=== PATIENT | female | born 1965 | race Caucasian/White ===

== ENCOUNTER → 2019-05-23 12:28 | Outpatient (CLI) | payer OTHER, SELFPAY ==
--- NOTE | ~2019-05-23 | MM_ITS ---
EXAMINATION: MM screening [facility] BI w bob HISTORY: Screening mammogram TECHNIQUE: Craniocaudal and mediolateral oblique 3-D tomosynthesis images were obtained and synthetic 2-D images were generated. CAD analysis was submitted and interpreted. COMPARISON: 04/29/2018, 02/24/2017, 02/18/2016 BREAST PARENCHYMAL COMPOSITION: There are scattered areas of fibroglandular density. FINDINGS: There is no evidence of suspicious mass, calcification, or architectural distortion to sugg est malignancy in either breast. There has been no suspicious interval change. IMPRESSION: 1. No mammographic evidence of malignancy. 2. Recommend routine screening mammography in one year. BI-RADS Category 1: Negative Reviewed, dictated and finalized at location A.
== END ==
PROVIDERS: PCP Family Medicine; Visit Provider Nurse Practitioner Obstetrics & Gynecology
DX: Z12.31 Encounter for screening mammogram for malignant neoplasm of breast (principal)
CPT/HCPCS: 77063; 77067

== ENCOUNTER → 2021-05-19 14:46 | Outpatient (CLI) | payer OTHER, SELFPAY ==
--- NOTE | ~2021-05-19 | MM_ITS ---
EXAMINATION: MM screening [facility] BI w bob HISTORY: Screening TECHNIQUE: Craniocaudal and mediolateral oblique 3-D tomosynthesis images were obtained and synthetic 2-D images were generated. CAD analysis was submitted and interpreted. COMPARISON: Comparison to multiple prior studies sequentially, with oldest reviewed study dated 11/2013. BREAST PARENCHYMAL COMPOSITION: Breast composed of scattered areas of fibroglandular density FINDINGS: There are developing masses centered in the upper outer quadrant of the right breast. The l eft breast is stable without evidence for malignancy. IMPRESSION: 1. Developing right breast masses. 2. Additional mammographic views and possible breast ultrasound are recommended. BI-RADS Category 0: Incomplete: Needs additional imaging evaluation. Reviewed, dictated and finalized at location A. N WIPER IMPRESSION: 1. Developing right breast masses. 2. Additional mammographic views and possible breast ultrasound are recommended . BI-RADS Category 0: Incomplete: Needs additional imaging evaluation.
--- NOTE | ~2021-05-19 | DEXA_ITS ---
Bone Density Report Name: LUIS STRONG Age: 56 Sex: Female Ethnicity: White Date of : 1965 Indication: osteopenia; hysterectomy; rheumatoid arthritis; postmenopausal Referring Provider: Marcelino, Swetha Souza Study: Bone densitometry was performed. Exam Date: May 19, 2021 Accession number: [id number] Bone Density: Region BMD T-score Z-score Classification AP Spine (L1-L4) 0.884 -1.5 -0.4 Osteopenia Femoral Neck (Left) 0.711 -1.2 -0.2 Osteopenia Total Hip (Left) 0.815 -1.0 -0.4 Normal Femoral Neck (Right) 0.648 -1.8 -0.8 Osteopenia Total Hip (Right) 0.824 -1.0 -0.3 Normal Total Hip Mean 0.820 -1.0 -0.4 Normal World Health Organization criteria for BMD impression classify patients as: Normal (T-score at or above -1.0), Osteopenia (T-score between -1.0 and -2.5), or Osteoporosis (T-score at or below -2.5). 10-year Fracture Risk(1): Major Osteoporotic Fracture 8.7% Hip Fracture 0.9% Reported Risk Factors: [place] (), Neck BMD=0.648, BMI=36.9, rheumatoid arthritis (1) FRAX(R) Version 3.08. Fracture probability calculated for an untreated patient. Fracture probability may be lower if the patient has received treatment. Previous Exams: Region Exam Age BMD T-score BMD Change BMD Change Date g/cm2 vs Baseline vs Previous AP Spine(L1-L4) 05/19/2021 56 0.884 -1.5 -0.001 -0.022 11/10/2010 45 0.906 -1.3 0.021 0.060* 10/28/2009 44 0.846 -1.8 -0.039* -0.039* 05/02/2007 42 0.885 -1.5 Total Hip(Left) 05/19/2021 56 0.815 -1.0 -0.044* 0.018 11/10/2010 45 0.797 -1.2 -0.062* -0.003 10/28/2009 44 0.800 -1.2 -0.059* -0.059* 05/02/2007 42 0.859 -0.7 Total Hip(Right) 05/19/2021 56 0.824 -1.0 -0.051* -0.017 11/10/2010 45 0.841 -0.8 -0.034* 0.014 10/28/2009 44 0.827 -0.9 -0.048* -0.048* 05/02/2007 42 0.875 -0.6 *Denotes significance at 95% confidence level, LSC for AP Spine = 0.022 g/cm2, LSC for Total Hip = 0.027 g/cm2 Clinical Information Provided by Patient: Has rheumatoid arthritis Has the following medical conditions: Hysterectomy Patient maximum height was 60 Menopause Age: 33 No regular weight bearing exercise Does not regularly consume dairy products Drinks caffeinated beverages Onset of menses at age 13 Number of children 1
== END ==
PROVIDERS: PCP Family Medicine; Visit Provider Nurse Practitioner Obstetrics & Gynecology
DX: Z12.31 Encounter for screening mammogram for malignant neoplasm of breast (principal); Z78.0 Asymptomatic menopausal state; M85.89 Other specified disorders of bone density and structure, multiple sites
CPT/HCPCS: 77063; 77067; 77080

== ENCOUNTER → 2021-06-03 08:09 | Outpatient (CLI) | payer OTHER, SELFPAY ==
--- NOTE | ~2021-06-03 | MMUS_ITS ---
. EXAMINATION: MM diagnostic [facility] RT w bob, US breast RT limited HISTORY: Developing masses centered in upper outer quadrant of right breast on 05/19/2021 screening [facility] mogram TECHNIQUE: Additional full field ML and spot ML, MLO and craniocaudal 3-D tomosynthesis images of the right breast were performed and synthetic 2-D images were generated. CAD analysis was submitted and interpreted. High resolution upper outer quadrant right breast ultrasound was performed. COMPARISON: 05/19/2021 bilateral screening mammogram FINDINGS: MAMMOGRAPHIC FINDINGS: There is focal asymmetry in the upper outer quadrant of the right breast, with a circumscribed low-de nsity 8 mm upper outer quadrant mass.. ULTRASOUND: No suspicious mass or shadowing is noted. 12:00 3 cm from nipple: 7 x 5 x 9 mm sonolucency with through transmission posterior enhancement, con sistent with simple cyst 9:00 5 cm from nipple: Parallel circumscribed sonolucency measuring 3 x 1.6 x 3.6 mm, consistent with simple cyst IMPRESSION: 1. Benign findings 2. Routine mammographic screening is recommended BI-RADS Category 2: Benign finding(s). Reviewed, dictated and finalized at location A. IMPRESSION: 1. Benign findings 2. Routine mammographic screening is recommended BI-RADS Category 2: Benign finding(s).
== END ==
PROVIDERS: PCP Family Medicine; Visit Provider Nurse Practitioner Obstetrics & Gynecology
DX: R92.8 Other abnormal and inconclusive findings on diagnostic imaging of breast (principal); N63.15 Unspecified lump in the right breast, overlapping quadrants
CPT/HCPCS: 76642; 77061; 77065; G0279

== ENCOUNTER → 2021-11-28 15:02 | Outpatient (CLI) | payer OTHER, SELFPAY ==
--- NOTE | ~2021-11-28 | XR_ITS ---
EXAMINATION: XR_[id number]_CR DATE: 11/28/2021 15:11 INDICATION: Neck pain. TECHNIQUE: 3 views of the cervical spine were obtained. COMPARISON: None. FINDINGS: There is 4 degrees levocurvature of cervical spine. Vertebral body heights are normal. Ther e is mildly decreased disc height at C4-C5 and moderately decreased disc height at C5-C6. The facet j oints are normal. No central canal stenosis or prevertebral soft tissue swelling. IMPRESSION: 1. Moderate cervical spondylosis. Reviewed, dictated and finalized at location A.
== END ==
PROVIDERS: PCP Family Medicine; Visit Provider Family Medicine
DX: M47.812 Spondylosis without myelopathy or radiculopathy, cervical region (principal)
CPT/HCPCS: 72040

== ENCOUNTER → 2022-09-29 16:00 | Outpatient (CLI) | payer OTHER, SELFPAY ==
--- NOTE | ~2022-09-29 | MM_ITS ---
EXAMINATION: MM screening [facility] BI w bob HISTORY: Screening TECHNIQUE: Craniocaudal and mediolateral oblique 3-D tomosynthesis images were obtained and synthetic 2-D images were generated. CAD analysis was submitted and interpreted. COMPARISON: Comparison to multiple prior studies sequentially, with oldest reviewed study dated 08/2015. BREAST PARENCHYMAL COMPOSITION: There are scattered areas of fibroglandular density. FINDINGS: Stable focal asymmetries in the upper outer quadrant of the right breast. There is no evide nce of suspicious mass, calcification, or architectural distortion to suggest malignancy in either br east. There has been no suspicious interval change. IMPRESSION: 1. No mammographic evidence of malignancy. 2. Recommend routine screening mammography in one year. BI-RADS Category 1: Negative Reviewed, dictated and finalized at location A.
== END ==
PROVIDERS: PCP Nurse Practitioner Obstetrics & Gynecology; Visit Provider Nurse Practitioner Obstetrics & Gynecology
DX: Z12.31 Encounter for screening mammogram for malignant neoplasm of breast (principal)
CPT/HCPCS: 77063; 77067

== ENCOUNTER 2023-10-04 07:05 | Outpatient (CLI) | payer OTHER, SELFPAY ==
--- NOTE | ~2023-10-04 | MM_ITS ---
EXAMINATION: MM screening [facility] BI w bob HISTORY: Screening TECHNIQUE: Craniocaudal and mediolateral oblique 3-D tomosynthesis images were obtained and synthetic 2-D images were generated. CAD analysis was submitted and interpreted. COMPARISON: No prior mammogram is available for comparison at this institution. BREAST PARENCHYMAL COMPOSITION: Not dense: There are scattered areas of fibroglandular density. FINDINGS: There is no evidence of suspicious mass, calcification, or architectural distortion to sugg est malignancy in either breast. There has been no suspicious interval change. IMPRESSION: 1. No mammographic evidence of malignancy. 2. Recommend routine screening mammography in one year. BI-RADS Category 1: Negative Reviewed, dictated and finalized at location B.
== END 2023-10-04 07:06 ==
PROVIDERS: PCP Family Medicine; Visit Provider Nurse Practitioner Obstetrics & Gynecology
DX: Z12.31 Encounter for screening mammogram for malignant neoplasm of breast (principal)
CPT/HCPCS: 77063; 77067

== ENCOUNTER 2023-11-13 07:21 | Outpatient (CLI) | payer OTHER, SELFPAY ==
--- NOTE | ~2023-11-13 | XR_ITS ---
XR hip LT min 2V 11/13/2023 07:53 Indication: Left hip pain Procedure: 2 views left Comparison: No prior studies for comparison. Findings: There is anatomic alignment. No fracture, subluxation or dislocation. No significant soft t issue abnormality. No foreign bodies. Impression: 1: No significant bone or joint abnormality. Reviewed, dictated and finalized at location B. Impression: 1: No significant bone or joint abnormality.
--- NOTE | ~2023-11-13 | XR_ITS ---
XR knee LT 3V 11/13/2023 07:53 Indication: Left knee pain Procedure: 3 views left knee Comparison: No prior studies for comparison. Findings: No fracture, subluxation or dislocation. No significant joint effusion. No foreign bodies. Impression: 1: No acute bone or joint abnormality Reviewed, dictated and finalized at location B. Impression: 1: No acute bone or joint abnormality
== END 2023-11-13 07:22 ==
PROVIDERS: PCP Family Medicine; Visit Provider Family Medicine
DX: M25.552 Pain in left hip (principal); M25.562 Pain in left knee
CPT/HCPCS: 73502; 73562

== ENCOUNTER 2023-11-27 07:29 | Outpatient (CLI) | payer OTHER, SELFPAY ==
--- NOTE | ~2023-11-27 | MR_ITS ---
EXAMINATION: MR cervical spine wo con DATE: 11/27/2023 08:06 INDICATION: Chronic left-sided neck pain TECHNIQUE: Magnetic resonance imaging (MRI) of the cervical spine was performed without intravenous c ontrast. Sequences included sagittal T2-weighted FSE, sagittal T2-weighted FS FSE, sagittal T1-weight ed FSE, axial MERGE and axial T2-weighted FSE. COMPARISON: None FINDINGS: Straightening of the normal cervical lordosis. Vertebral body heights are normal. Bone marrow signa l intensity is normal. Mild disc height loss at C5-C6. Cord signal intensity is normal. Visualized ce rvical soft tissues are unremarkable. The following disc levels are specifically discussed: C2-C3: The disc does not extend beyond the endplate margin. There is mild left uncovertebral joint os teoarthritis. There is mild bilateral facet joint osteoarthritis. There is no neural foraminal stenos is. There is no central canal stenosis. C3-C4: The disc does not extend beyond the endplate margin. There is mild bilateral uncovertebral lynette nt osteoarthritis. There is mild right facet joint osteoarthritis. There is minimal right neural fora kaitlin stenosis. There is no central canal stenosis. C4-C5: Disc is mildly bulging. There is mild left uncovertebral joint osteoarthritis. There is mild r ight facet joint osteoarthritis. There is no neural foraminal stenosis. There is minimal central sulaiman l stenosis. C5-C6: Disc is mildly bulging. There is moderate left and mild right uncovertebral joint osteoarthrit is. There is no facet joint osteoarthritis. There is mild to moderate left and minimal right neural f oraminal stenosis. There is mild central canal stenosis. C6-C7: The disc does not extend beyond the endplate margin. There is no uncovertebral joint osteoarth ritis. There is no facet joint osteoarthritis. There is no neural foraminal stenosis. There is no carmen tral canal stenosis. C7-T1: The disc does not extend beyond the endplate margin. There is no uncovertebral joint osteoarth ritis. There is mild right and moderate left facet joint osteoarthritis. There is mild left neural fo raminal stenosis. There is no central canal stenosis. IMPRESSION: 1. Mild cervical spondylosis. Reviewed, dictated and finalized at location A.
== END 2023-11-27 07:30 | disposition home or self-care (01) ==
LOC: MICIMG 07:29
PROVIDERS: PCP Family Medicine; Visit Provider Family Medicine
DX: M47.892 Other spondylosis, cervical region (principal)
CPT/HCPCS: 72141

== ENCOUNTER 2023-12-25 08:27 | Outpatient (CLI) | payer OTHER, SELFPAY ==
--- NOTE | ~2023-12-25 | MR_ITS ---
EXAMINATION: MR brain/brain stem wo con DATE: 12/25/2023 09:32 INDICATION: Paresthesias. Generalized headache. TECHNIQUE: Magnetic resonance imaging (MRI) of the brain and brainstem was performed without intraven ous contrast. COMPARISON: None. FINDINGS: There are scattered areas of nonspecific increased T2-weighted signal intensity in the cere bral white matter. There is no intracranial hemorrhage, acute infarction, or abnormal intracranial ma ss lesion. The ventricles are normal in size. The paranasal sinuses are clear. There are likely rothman es of ocular lens replacement surgeries. The mastoid air cells are normal. IMPRESSION: 1. Mild nonspecific cerebral white matter disease, which likely represents chronic small vessel ische kassi disease. Reviewed, dictated and finalized at location A. IMPRESSION: 1. Mild nonspecific cerebral white matter disease, which likely represents hanger jocelin small vessel ischemic disease.
== END 2023-12-25 08:28 | disposition home or self-care (01) ==
LOC: MICIMG 08:28
PROVIDERS: PCP Family Medicine; Visit Provider Family Medicine
DX: R20.2 Paresthesia of skin (principal); R29.898 Other symptoms and signs involving the musculoskeletal system; R90.82 White matter disease, unspecified
CPT/HCPCS: 70551

== ENCOUNTER 2024-04-01 09:38 | Outpatient (CLI) | payer OTHER, SELFPAY ==
[2024-04-01 11:28] LABS: Add Urine Microscopic? YES; Appearance Urine Clear (Clear); Bacteria Urine None Seen /hpf; Bilirubin Urine Negative (Negative); Blood Urine Negative (Negative); Color Urine Yellow (Yellow); Glucose Urine UA 1+ mg/dL (Negative); Ketones Urine Trace mg/dL (Negative); Leukocyte Esterase Ur 1+ LEU/UL (Negative); Nitrate Urine Negative (Negative); Protein Urine Negative (Negative); RBC Urine 0-2 /hpf (0-2); Specific Grav Ur 1.022 (1.001-1.035); Squamous Epithelial Cell Urine None Seen /hpf (Few); Urobilinogen Urine 0.2 mg/dL (<2.0)
--- OUTSIDE RECORDS SUMMARY | 2024-04-06 08:46 | XMS_ITS | Referral Summary ---
Author Organization [facility] Physician Office Building [address] [place] [id number] Care Team Providers Care Environmental Conservation Officer Name Role Phone Wil Araya MD Primary Care Provider Swetha Benson SQUEEGEE OPERATOR Unavailable [phone] Encounters Date Type Department Care Team Description 03/13/2024 10:50 AM BOILER INSPECTOR Lab [address] [address] from Last 3 Months Allergies Active Allergy Reactions Criticality Noted Date Comments Metformin Muscle pain,Nausea & Vomiting Medium 2022 Nuts Blisters High 07/25/2021 Risperidone Muscle pain,Nausea & Vomiting Medium 12/19 Medications pravastatin (PRAVACHOL) 20 mg tablet take 1 tablet by oral route every day 0 0 6 Active losartan (COZAAR) 100 mg tablet take 1 tablet by oral route every day 0 0 6 Active cinnamon bark 500 mg capsule Take 1 capsule (500 mg total) by mouth daily Active biotin 10,000 mcg capsule Take by mouth Active gabapentin (NEURONTIN) 300 mg capsule Take 1 capsule (300 mg total) by mouth 3 (three) times a day Active aspirin 81 mg enteric coated tablet Take 1 tablet (81 mg total) by mouth daily Active peg 400-propylene glycol, PF, (SYSTANE ULTRA) 0.4-0.3 % dropperette Administer into affected eye(s) Active cyclobenzaprine (FLEXERIL) 5 mg tablet Take 1 tablet (5 mg total) by mouth 2 (two) times a day as needed for muscle spasms Active amitriptyline (ELAVIL) 25 mg tablet Take 1 tablet (25 mg total) by mouth nightly Active amLODIPine (NORVASC) 5 mg tablet Take 1 tablet (5 mg total) by mouth daily Active folic acid/multivit-min/ lutein (CENTRUM SILVER ORAL) Take 1 tablet by mouth daily Active predniSONE (DELTASONE) 5 mg tablet Take 1 tablet (5 mg) by mouth daily as needed Active diphenhydrAMINE-ac etaminophen (Tylenol PM Extra Strength) 25-500 mg tabletIndications: Insomnia Take 1 tablet by mouth daily Active levothyroxine (SYNTHROID) 125 mcg tablet Take 1 tablet (125 mcg total) by mouth shear operator helper before breakfast Active azaTHIOprine (IMURAN) 50 mg tablet Take 1 tablet (50 mg total) by mouth 2 (two) times a day 3 Active tocilizumab (ACTEMRA) 162 mg/0.9 mL syringe Inject 0.9 mL (162 mg total) under the skin every 7 days 3 Active traMADoL (ULTRAM) 50 mg tablet Take 1 tablet (50 mg total) by mouth every 8 (eight) hours as needed for pain 5 tablet 3 Active famotidine (PEPCID) 20 mg tablet Take 1 tablet (20 mg total) by mouth daily 3 Active ondansetron ODT (ZOFRAN-ODT) 4 mg disintegrating tablet Take 1 tablet (4 mg total) by mouth every 8 (eight) hours as needed for nausea or vomiting 20 tablet 3 Active Active Problems Problem Noted Date Diagnosed Date Disorder of thyroid 12/19/2022 Overview (12/19/2022): Thyroid disease Hypertension 12/19/2022 Overview (12/19/2022): Hypertension Acute pyelonephritis 12/19/2022 COVID-19 12/19/2022 Acute renal failure, unspecified acute renal rodrigo lure type 12/18/2022 Fibrocystic breast changes, bilateral 07/27/2021 Hereditary and idiopathic neuropathy Numbness and tingling Immunizations Name Administration Dates Next Due Influenza, Unspecified 12/13/2022 Social History Tobacco Use Types Packs/Day Years Used Date Smoking Tobacco: Never Alcohol Use Standard Drinks/Week Comments Yes 0 (1 standard drink = 0.6 oz pur e alcohol) Social Connection and Isolat ion Panel [NHANES] Answer Date Recorded In a typical week, how many times do you talk on the phone with family, friends, or neighbors? More than three times a week 12/21/2022 How often do you get togethe r with friends or relatives? Once a week 12/21/2022 How often do you attend chur ch or pentecostal services? Never 12/21/2022 Do you belong to any clubs o r organizations such as caodaism groups, unions, fraternal or athletic groups, or school groups? No 12/21/2022 How often do you attend meet ings of the clubs or organizations you belong to? Never 12/21/2022 Are you , , di vorced, , never , or living with a partner? 12/21/2022 Overall Financial Resource Strain (CARDIA) Answe r Date Recorded How hard is it for you to pa y for the very basics like food, housing, medical care, and heating? Not hard at all 12/21/2022 Hunger Vital Sign Answer Date Recorded Within the past 12 months, y ou worried that your food would run out before you got the money to buy more. Never true 12/22/19 23 Within the past 12 months, t he food you bought just didn't last and you didn't have money to get more. Never true 12/21/2022 PRAPARE - Transportation Answer Date Re corded In the past 12 months, has l ack of transportation kept you from medical appointments or from getting medications? No 11/2022 In the past 12 months, has l ack of transportation kept you from meetings, work, or from getting things needed for daily living? No 12/21/2022 Housing Stability Vital Sign Answer Jeferson e Recorded In the last 12 months, was t here a time when you were not able to pay the mortgage or rent on time? No 12/21/2022 In the last 12 months, how many places have you lived? 1 12/21/2022 In the last 12 months, was t here a time when you did not have a steady place to sleep or slept in a jail (including now)? No 12/21/2022 Personal Safety Answer Date Recorded Have you ever been in or are you currently in a harmful physical or emotional relationship or is someone making you feel afraid or unsafe? Denies 12/25/2022 Education Answer Date Recorded What is the highest level of school you have completed or the highest degree you have received? Some college, no degree 12/21/2022 Comments No Sex and Gender Information Value Date Recorded Sex Assigned at Not on file Legal Sex Female 11:43 AM BOILER INSPECTOR Gender Identity Not on file Sexual Orientation Not on file Last Filed Vital Signs Vital Sign Reading Time Taken Comments Blood Pressure 157/86 12/25/2022 7:30 PM CDT Pulse 85 12/25/2022 7:30 PM CDT Temperature 36.2 ??C (97.1 ??F) 12/25/2022 2:33 PM CD T Respiratory Rate 18 12/25/2022 7:30 PM CDT Oxygen Saturation 100% 12/25/2022 7:30 PM CDT Inhaled Oxygen Concentration - - Weight 81.6 kg (180 lb) 12/25/2022 2:33 PM CDT Height 152.4 cm (5') 12/19/2022 2:43 AM CDT Body Mass Index 35.15 12/19/2022 2:43 AM CDT Plan of Treatment Not on file Procedures Procedure Name Priority Date/Time Associated Diagnosis Comments EGFR Routine 03/13/2024 11:05 AM BOILER INSPECTOR URINALYSIS, MICROSCOPIC ONLY Routine 03/13/2024 11:05 AM BOILER INSPECTOR DIFFERENTIAL AUTO Routine 03/13/2024 11: 05 AM BOILER INSPECTOR URINALYSIS AND REFLEX TO MICROSCOPIC Routine 03/13/2024 11:05 AM BOILER INSPECTOR TSH Routine 03/13/2024 11:05 AM BOILER INSPECTOR ALBUMIN CREATININE RATIO, URINE Routine 03/13/2024 11:05 AM BOILER INSPECTOR LIPID PANEL Routine 03/13/2024 11:05 AM BOILER INSPECTOR COMPREHENSIVE METABOLIC PANEL Routine 03/13/2024 11:05 AM BOILER INSPECTOR CBC WITH AUTO DIFFERENTIAL Routine 03/13/2024 11:05 AM BOILER INSPECTOR HEMOGLOBIN A1C Routine 03/13/2024 11:05 AM BOILER INSPECTOR HEPATITIS C RNA, QUANTITATIVE, PCR Routine 10/13/2023 7:19 AM CDT from Last 3 Months or Most Recently Relevant to Health Maintenance Results * (ABNORMAL) eGFR (03/13/2024 11:05 AM BOILER INSPECTOR) eGFR 50(L) >=60 mL/min/1. 73 m2 Comment: Interpretive Data Reference Interval Normal ?>/= 90 mL/min/1.73m2 Mildly decreased* ? 60 - 89 mL/min/1.73m2 Mildly to moderately decreased ?45 - 59 mL/min/1.73m2 Moderately to severely decreased ??30 - 44 mL/min/1.73m2 Severely decreased ?15 - 29 mL/min/1.73m2 Kidney Failure ?< 15 ??mL/min/1.73m2 *Relative to young adult level Estimated glomerular filtration rate is determined by the 2020 CKD-EPI equation recommended by the National Kidney Foundation (A Unifying Approach to GFR Estimation: Recommendations of the NKF-ASK Task Force on Reassessing the Inclusion of Race in Diagnosing Kidney Disease, JASN 202). The CKD-EPI equation should not be used for patients with unstable renal function and has not been validated in children and those over 70. Current interpretive data was last reviewed 2021. Blood 03/13/2024 11:0 5 AM BOILER INSPECTOR 03/13/2024 11:19 AM BOILER INSPECTOR us Randall MCKENZIE LAB BLOOD ORDERABLES Shyla vázquez Result [facility] ([place]) 1 [facility] Department [place] [address] * Differential, auto (03/13/2024 11:05 AM BOILER INSPECTOR) Neutrophil abs 2.4 1.5 - 6.5 K/cumm Imm gran abs 0.0 0.0 - 0.1 K/cumm [facility] ([place]) Lymphocyte abs 1.2 0.8 - 3.3 K/cumm [facility] ([place]) Monocyte abs 0.4 0.2 - 0.8 K/cumm [facility] ([place]) Eosinophil abs 0.1 0.0 - 0.5 K/cumm [facility] ([place]) Basophil abs 0.0 0.0 - 0.1 K/cumm [facility] ([place]) Neutrophil pct 58.7 % [facility] ([place]) Comment: Interpretive Data Percent cell count reference ranges are not reported, since discordance with absolute values may lead to misinterpretation of CBC data. Current Interpretive Data was last revised on 2017. Imm gran pct 0.2 % [facility] ([place]) Comment: Interpretive Data Percent cell count reference ranges are not reported, since discordance with absolute values may lead to misinterpretation of CBC data. Current Interpretive Data was last revised on 2017. Lymphocyte pct 28.4 % [facility] ([place]) Comment: Interpretive Data Percent cell count reference ranges are not reported, since discordance with absolute values may lead to misinterpretation of CBC data. Current Interpretive Data was last revised on 2017. Monocyte pct 10.1 % [facility] ([place]) Comment: Interpretive Data Percent cell count reference ranges are not reported, since discordance with absolute values may lead to misinterpretation of CBC data. Current Interpretive Data was last revised on 2017. Eosinophil pct 1.9 % [facility] ([place]) Comment: Interpretive Data Percent cell count reference ranges are not reported, since discordance with absolute values may lead to misinterpretation of CBC data. Current Interpretive Data was last revised on 2017. Basophil pct 0.7 % [facility] ([place]) Comment: Interpretive Data Percent cell count reference ranges are not reported, since discordance with absolute values may lead to misinterpretation of CBC data. Current Interpretive Data was last revised on 2017. Blood 03/13/2024 11:0 5 AM BOILER INSPECTOR 03/13/2024 11:19 AM BOILER INSPECTOR us Randall MCKENZIE LAB BLOOD ORDERABLES Shyla kathie Result [facility] ([place]) 1 [facility] Department [place] [address] * (ABNORMAL) Urinalysis reflex to microscopic (03/13/2024 11:05 AM BOILER INSPECTOR) Color, ur Yellow Yellow Clarity, ur Turbid(A) Clear [facility] ([place]) Specific gravity, ur 1.018 1.003 - 1.030 [facility] ([place]) pH, urine 7.5 [facility] ([place]) Comment: Interpretive Data ? Urine pH is affected by diet, medications, systemic acid-base disturbances, and renal tubular function. ??pH may affect urinary stone formation. ??For example, urine pH below 6.0 may help reduce the tendency for calcium phosphate stones and pH greater than 6.0 may reduce the tendency for uric acid stone formation. Source: [facility] [employer] Current Interpretive Data was last revised on 2017 Protein, ur ql Trace Negative [facility] ([place]) Glucose, ur ql Negative Negative [facility] ([place]) Ketones, ur Negative Negative [facility] ([place]) Bilirubin, ur Negative Negative [facility] ([place]) Blood, ur Negative Negative [facility] ([place]) Urobilinogen, ur <2.0 <2.0 mg/dL [facility] ([place]) Nitrite, ur Negative Negative [facility] ([place]) Leukocyte esterase, ur 4+(A) Negative [facility] ([place]) UA reflex comment Reflex to microscopic UA will be performed. [facility] ([place]) Urine 03/13/2024 11:0 5 AM BOILER INSPECTOR 03/13/2024 11:24 AM BOILER INSPECTOR Randall MCKENZIE LAB URINE ORDERABLES Shyla l Result [facility] ([place]) 1 [facility] Department [place] [address] * (ABNORMAL) CBC with auto differential (03/13/2024 11:05 AM BOILER INSPECTOR) WBC 4.2 3.8 - 9.9 K/cumm Hgb 13.3 11.9 - 15.5 g/dL [facility] ([place]) Hct 39.3 35.6 - 45.5 % [facility] ([place]) Plt 262 150 - 400 K/cumm [facility] ([place]) MPV 9.7 9.1 - 12.3 fL [facility] ([place]) RBC 3.80(L) 3.90 - 5.20 M/cumm [facility] ([place]) MCV 103.4(H) 81.3 - 96.4 fL [facility] ([place]) MCH 35.0(H) 27.1 - 33.3 pg [facility] ([place]) MCHC 33.8 32.3 - 35.7 g/dL [facility] ([place]) RDW CV 12.8 11.1 - 14.9 % [facility] ([place]) RDW SD 47.8 35.7 - 48.1 fL [facility] ([place]) NRBC abs 0.00 0.00 - 0.01 K/cumm [facility] ([place]) Blood 03/13/2024 11:0 5 AM BOILER INSPECTOR 03/13/2024 11:19 AM BOILER INSPECTOR Randall MCKENZIE LAB BLOOD ORDERABLES Shyla l Result [facility] ([place]) 1 [facility] Department [place] [address] * Albumin Creatinine Ratio, Urine (03/13/2024 11:05 AM BOILER INSPECTOR) Pathologist [facility] Albumin Ur 27.4 mg/L Comment: Interpretive Data No reference range established. Current interpretive data was last revised 2018. Testing performed by: [facility], [address] [place] [address]., [id number] Creatinine Ur 283.9 mg/dL [facility] ([place]) Comment: Interpretive Data No reference range established. Current interpretive data was last revised 2018. Testing performed by: [facility], [address] [place] [address]., [id number] Albumin Creatinine Ratio, Ur 10 1 - 29 mg/g [facility] ([place]) Comment:Testing performed by : [facility], [address] [place] [address]., [id number] Urine 03/13/2024 11:0 5 AM BOILER INSPECTOR 03/13/2024 1:59 PM BOILER INSPECTOR Randall MCKENZIE LAB URINE ORDERABLES Shyla l Result Performing Organization Address [facility] de Phone Number [facility] ([place]) 1 [facility] [place] [place] [address] * (ABNORMAL) Urinalysis, microscopic only (03/13/2024 11:05 AM BOILER INSPECTOR) WBC, ur 11-20(A) 0 - 5 /HPF RBC, ur 3-5(A) 0 - 2 /HPF [facility] ([place]) Epithelial cells, squamous, ur 1-5 0 - 5 /HPF [facility] ([place]) Bacteria, ur Trace(A) [facility] ([place]) Mucous, ur Present(A) [facility] ([place]) Hyaline casts, ur 11-20(A) 0 - 10 /LPF [facility] ([place]) Urine 03/13/2024 11:0 5 AM BOILER INSPECTOR 03/13/2024 11:24 AM BOILER INSPECTOR Randall MCKENZIE LAB URINE ORDERABLES Shyla l Result Performing Organization Address [facility] Co de Phone Number [facility] ([place]) 1 [facility] [place] [address] * (ABNORMAL) TSH (03/13/2024 11:05 AM BOILER INSPECTOR) Thyroid Stimulating Hormone 0.27(L) 0.30 - 4.20 mcIUnit/mL Blood 03/13/2024 11:0 5 AM BOILER INSPECTOR 03/13/2024 11:19 AM BOILER INSPECTOR Randall MCKENZIE LAB BLOOD ORDERABLES Shyla l Result Performing Organization Address [facility] de Phone Number [facility] ([place]) [address] [place] [id number] * (ABNORMAL) Hemoglobin A1c (03/13/2024 11:05 AM BOILER INSPECTOR) [facility] Hgb A1C 6.1(H) 4.0 - 5.6 % Estimated Average Glucose 128 mg/dL [facility] ([place]) Comment: The ADA recommends reporting an estimated Average Glucose (eAG) with all Hemoglobin A1c results using the equation derived from a study of 507 normal and diabetic adults. ??Minority populations were underrepresented and children were not included. ?? (Diabetes Care 31:7786-2699, 2008). ??The eAG is not equivalent to a fasting glucose. Blood 03/13/2024 11:0 5 AM BOILER INSPECTOR 03/13/2024 11:19 AM BOILER INSPECTOR Randall MCKENZIE LAB BLOOD ORDERABLES Shyla l Result Performing Organization Address [facility] de Phone Number [facility] ([place]) 1 [place] [address] * Lipid panel (03/13/2024 11:05 AM BOILER INSPECTOR) [facility] Cholesterol 198 30 - 199 mg/dL Comment: Interpretive Data Ages < or = 19 years ??Acceptable: ? <170 mg/dL ??Borderline high: ??170-199 mg/dL ??High: ? >or= 200 mg/dL Ages > or = 20 years ??Desirable: ?<200 mg/dL ??Borderline high: ??200-239 mg/dL ??High: ? >or= 240 mg/dL Literature References: 1. Expert Panel on Integrated Guidelines for Cardiovascular Health and Risk Reduction in Children and Adolescents. Pediatrics 2011;128:S213 2. NCEP Expert Panel. Circulation 2004;110:227 Current Interpretive Data was last revised on 2017. Triglycerides 115 <=149 mg/dL [facility] ([place]) Comment: Interpretive Data Ages < or = 9 years ??Acceptable: ? <75 mg/dL ??Borderline high: ??75-99 mg/dL ??High: ? >or= 100 mg/dL Ages 10 to 20 years ??Acceptable: ? <90 mg/dL ??Borderline high: ??90-129 mg/dL ??High: ? >or= 130 mg/dL Ages > or = 20 years ??Desirable: ?<150 mg/dL ??Borderline high: ??150-199 mg/dL ??High: ? 200-499 mg/dL ?Very high: ?? >or= 499 mg/dL Literature References: 1. Expert Panel on Integrated Guidelines for Cardiovascular Health and Risk Reduction in Children and Adolescents. Pediatrics 2011;128:S213 2. NCEP Expert Panel. Circulation 2004;110:227 Current Interpretive Data was last revised on 2017. HDL 61 >=40 mg/dL [facility]) Comment: Interpretive Data Ages < or = 19 years ??Acceptable: ? >45 mg/dL ??Borderline low: ?? 40-45 mg/dL ??Low: ? <40 mg/dL Ages > or = 20 years ??Desirable: ?>or= 60 mg/dL ??Low: ? <40 mg/dL Literature References: 1. Expert Panel on Integrated Guidelines for Cardiovascular Health and Risk Reduction in Children and Adolescents. Pediatrics 2011;128:S213 2. NCEP Expert Panel. Circulation 2004;110:227 Current Interpretive Data was last revised on 2017. LDL, calculated 117 <=129 mg/dL [facility]) Comment: Interpretive Data Ages < or = 19 years ??Acceptable: ? <110 mg/dL ??Borderline high: ??110-129 mg/dL ??High: ?>or= 130 mg/dL Ages > or = 20 years ??Optimal: ? <100 mg/dL ??Near optimal: ?100-129 mg/dL ??Borderline high: ?? 130-159 mg/dL ??High: ?>160 mg/dL Calculated using the Austen LDL-C estimating equation. This equation was implemented on 2023. Prior to this date LDL-C was estimated using the Friedewald equation. Literature References: 1. Expert Panel on Integrated Guidelines for Cardiovascular Health and Risk Reduction in Children and Adolescents. Pediatrics 2011;128:S213 2. NCEP Expert Panel. Circulation 2004;110:227 3. Austen M et al. ARCELIA Cardiol. 2020 July 13;5(5):540-548. doi: 10.1001/jamacardio.2020.0013 Current Interpretive Data was last revised on 2023. Non-HDL Cholesterol 137 mg/dL [facility] ([place]) Comment: Interpretive Data Ages < or = 19 years ??Acceptable: ?<120 mg/dL ??Borderline high: ??120-144 mg/dL ??High: ?>145 mg/dL Ages > or = 20 years ??When triglycerides are >200 mg/dL, Non-HDL cholesterol is a secondary target of ? therapy with treatment goals that are 30 mg/dL greater than the LDL cholesterol target. ? Literature References: 1. Expert Panel on Integrated Guidelines for Cardiovascular Health and Risk Reduction in Children and Adolescents. Pediatrics 2011;128:S213 2. NCEP Expert Panel. Circulation 2004;110:227 Current Interpretive Data was last revised on 2017. Chol/HDL ratio 3 [facility] ([place]) Blood 03/13/2024 11:0 5 AM BOILER INSPECTOR 03/13/2024 11:19 AM BOILER INSPECTOR Randall MCKENZIE LAB BLOOD ORDERABLES Shyla kathie Result [facility] ([place]) 1 [facility] Department [place] [address] * (ABNORMAL) Comprehensive metabolic panel (03/13/2024 11:05 AM BOILER INSPECTOR) Sodium 136 135 - 145 mmol/L Potassium, pl 4.7 3.3 - 4.9 mmol/L [facility] ([place]) Chloride 98 97 - 110 mmol/L [facility] ([place]) CO2 26 22 - 32 mmol/L [facility] ([place]) Anion gap 11 2 - 15 mmol/L [facility] ([place]) BUN 11 6 - 25 mg/dL [facility] ([place]) Creatinine 1.26(H) 0.60 - 1.10 mg/dL [facility] ([place]) Glucose 120 70 - 199 mg/dL [facility] ([place]) Comment: Interpretive Data Fasting glucose >/= 126 mg/dl is diagnostic for diabetes. ?? Fasting is defined as no caloric intake for at least 8 hours. Fasting glucose between 100 mg/dl to 125 mg/dl is diagnostic of prediabetes. In a patient with classic symptoms of hyperglycemia or hyperglycemic crisis, a random glucose >/= 200 mg/dl is diagnostic for diabetes. In the absence of unequivocal hyperglycemia, results should be confirmed by repeat testing. The classification and Diagnosis of Diabetes Diabetes Care 202; 46: S19-S40. Current interpretive data was last revised 2022. Calcium 9.9 8.5 - 10.3 mg/dL [facility] ([place]) Bilirubin, total 0.5 0.1 - 1.2 mg/dL [facility] ([place]) Protein, pl 7.2 6.5 - 8.5 g/dL [facility] ([place]) Albumin 4.8 3.5 - 5.0 g/dL [facility] ([place]) Alk phos 68 40 - 130 Units/L [facility] ([place]) ALT 39 7 - 45 Units/L [facility] ([place]) AST 47(H) 10 - 45 Units/L [facility] ([place]) Blood 03/13/2024 11:0 5 AM BOILER INSPECTOR 03/13/2024 11:19 AM BOILER INSPECTOR us Randall MCKENZIE LAB BLOOD ORDERABLES Shyla vázquez Result [facility] ([place]) 1 [facility] [place] [address] * Hepatitis C (HCV) RNA PCR, quantitative Blood (10/13/2023 7:19 AM CDT) [facility] HCV RNA result Not Detected [facility] Comment: The quantifiable range of this assay is 15 IU/mL to 100,000,000 IU/mL (1.18 log IU/mL to 8.00 log IU/mL). Testing was performed by the [facility]00 HCV Test ([employer] Testing performed at [facility] Current Interpretive Data was last revised on 2020 Testing performed by: [facility], [address] [place]., [address] Blood 10/13/2023 7:19 AM CDT 10/13/2023 9:41 AM CDT Narrative [facility] ([place]) - 10/14/2023 12:05 PM CDT [id number] us Zbigniew Black MD LAB MICROBIOLOGY - GENERAL ORD ERABLES Final Result [facility] ([place]) 1 [facility] [place] [address] [facility] from Last 3 Months or Most Recently Relevant to Health Maintenance Insurance [facility] CHOICE PLUS [facility] [employer] Care Teams Environmental Conservation Officer Relationship Specialty Start Date End Date Wil Araya MD [address] [address] PCP - General 10/07/15 Swetha Benson NP [address] [address] Nurse Practitioner Nurse Practitioner 07/29/21
--- OUTSIDE RECORDS SUMMARY | 2024-04-06 08:46 | XMS_ITS | Encounter Summary ---
Author Organization [facility] Healthcare Address [address] [place] [address] Care Team Providers Care Vibratory Pile Driver Name Role Phone Wil Araya MD Primary Care Provider Reason for Visit * Diagnostic Imaging (Routine) - Closed Specialty Diagnoses / Procedures Referred By Arun t Referred To Contact Procedures Breast Imaging Screening Outside Reference Delmy Vegas NP Phone: tel: fax: Referral ID Status Reason Start Date Expiration Date Visits Re quested Visits Authorized [id number] Closed 07/23/2021 08/22/2022 1 1 Encounter Details Date Type Department Care Team (Late st Contact Info) Description 05/23/2019 Hospital Encounter [facility] [address] [place] [address] Social History Tobacco Use Types Packs/Day Years [...] often do you attend chur ch or yarsanism services? Never 12/21/2022 Do you belong to any clubs o r organizations such as zoroastrian groups, unions, fraternal or athletic groups, or [...] place to sleep or slept in a half-way (including now)? 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 ??There will be no report generated by a [facility] Radiologist. Narrative [facility] - 07/23/2021 12:17 PM CDT EXAMINATION: ??Images For Reference Purposes Only us Delmy Vegas CONSERVATION EDUCATOR IMG MAMMO PROCEDURES Fin al Result [facility] documented in this encounter Visit Diagnoses Not on filedocumented in this encounter Additional Health Concerns Infection Onset Date Last Indicated Resolved Time COVID: Suspected 12/19/2022 12/19/2022 12/19/2022 1:26 AM CDT COVID19 Comment:Patient has documented SpO2 < 94% which required supplemental oxygen > 24 hours and is not immunocompromised. Based on a S&S onset date of 12/13/22 plus the need for supplemental oxygen this patient is first eligible for COVID: Recovered evaluation on 12/28/22. JAMAAL Teague 12/19/2022 12/19/2022 01/01/2023 3:05 AM C DT COVID: Recovered Comment:Added based on recent COVID infection. 01/01/2023 01/08/2023 04/01/2023 3:[address] documented as of this encounter Care Teams Vibratory Pile Driver Relationship Specialty Start Date End Date Wil Araya MD [address] [facility] [address] [place] [address] PCP - General 10/07/15 documented as of this encounter
--- OUTSIDE RECORDS SUMMARY | 2024-04-06 08:46 | XMS_ITS | Clinical Summary ---
Author Organization [facility] Address [address] [place] [address]. 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 Gender Identity Not on file Sexual Orientation Not on file Plan of Treatment Health Maintenance Due Date Last Done Comments Cervical Cancer Screening Pa p Smear (Age 30 to 64) Every 3 Years 1966 Colorectal Cancer Screening Colonoscopy (10 Years) 1966 Annual Physical 1969 Hepatitis C 1984 DTaP, Tdap and Td Vaccines ( 1 - Tdap) 1985 Hepatitis B Vaccines (1 of 3 - 19+ 3-dose series) 1985 Cervical Cancer Screening Pa p with HPV Testing (Age 30 to 64) Every 5 Years 1996 Cervical Cancer Screening with HPV 1996 Mammogram Screening 2006 Zoster Vaccines (1 of 2) 2016 COVID-19 Vaccine (2023-2 5 season) 2023 Influenza Adult (#1) 2023 Meningococcal Vaccine Aged Out No aba jocelyne eligible based on patient's age to complete this topic Pneumococcal Vaccine: Pediat rics (0 to 5 Years) and At-Risk Patients (6 to 64 Years) Aged Out No longer eligible b ased on patient's age to complete this topic RSV Immunizations Under 20 Months Aged Out No longer eligible based on patient's age to complete this topic
--- OUTSIDE RECORDS SUMMARY | 2024-04-06 08:46 | XMS_ITS | Continuity of Care Document ---
Author Organization [facility] [place] [address] [place] [phone] Phone Care Team Providers Care Embossing Machine Tender Name Role Phone Wil Chan MD Unavailable Unavailable Allergies, Adverse Reactions, Alerts Substance Reaction Status Criticality No Known Allergies Active No Inform ation Medications Medication Instructions Dosage Effective Dates (start - stop) Status Comments meloxicam 15 mg tablet take 1 tablet by oral route every day 15 MG - Active Tirosint 75 mcg capsule take 1 capsule by oral route every day 75 MCG - Active pravastatin 20 mg tablet take 2 tablet by oral route every day 40 MG - Active losartan 100 mg tablet take 1 tablet by oral route every day 100 MG - Active Procedures Procedure Date Refraction Eye Exam & Treatment After Cataract Laser Surgery No Charge Refraction No Charge Refraction Eye Exam, New Patient Post-op Follow-up Visit Post-op Follow-up Visit Remove Cataract, Insert Lens Astigmatism Correcting Toric IOL 2011 [employer]-Professional Post-op Follow-up Visit Post-op Follow-up Visit Remove Cataract, Insert Lens Astigmatism Correcting Toric IOL 2011 No Charge Cataract Check IOLMaster Corneal Topography Eye Exam & Treatment Echo Exam Of Eye Office/outpatient Visit, Est Eye Exam & Treatment Visual Field Examination(s) Fundus Photography W/ Report Office/outpatient Visit, Est Eye Exam, New Patient Visual Field Examination(s) Corneal Pachymetry Fundus Photography W/ Report Advance Directives Directive Yes / No Effective Date File Name No Information Encounters Encounter Description Practice Location Reason(s) For Visit Diagnoses Date Provider Providers Copied on Encounter [facility], [address], [place], [place], [id number], tel:[phone] [place] Professional Complete Exam (chief complaint) Presence of intraocular lens Oct-3 1-201 7 Dustin De La Torre. [address], [facility] [place], [address], [place]. tel:[phone] Referring Provider: Alvaro Singleton OD, [facility] [address] [place], [address]. tel:[phone] [facility], [address], [place], [place], [address], tel:[phone] [place] Professional decreased vision (chief complaint) After-catara ct of right eye with vision obscured Mar-0 9-201 6 Wiley Bhakta. [address], [place], [place], [address], [place]. tel:[phone] Referring Provider: Alvaro Singleton OD, [facility] [address] [place], [address]. tel:[phone] [facility], [address], [place], [place], [address], [place] tel:[phone] SEC [place] Professional Blurry vision (chief complaint) Pseudophakia of both eyesAfter-ca taract of right eye with vision obscured 6 Wankkendell Bhakta. [address] [facility], [facility] [place], [address], [place]. tel:[phone] Referring Provider: Alvaro Singleton OD, [facility] [address] [place], [address]. tel:[phone] [facility], [address], [place], [place], [address], [place] tel:[phone] SEC [facility] Professional No Information 5 Wiley Bhakta. [address] [facility], [facility] [place], [address], [place]. tel:[phone] [facility], [address] [place] [address] [address], [place], [place], [address], [place] tel:[phone] SEC [facility] Professional a comprehensiv e exam (chief complaint) No Information 2 Wiley Bhakta. [address] [facility], [facility] [place], [address], [place]. tel:[phone] Referring Provider: Alvaro Singleton OD, [facility] [address] [place], [address]. tel:[phone] [facility], [address], [place], [place], [address], [place] tel:[phone] [place] Professional a comprehensiv e exam (chief complaint) FOLLOW-UP SURGERY NOS 2 Norman Butterfield. [address], [address], [place], [address], [place]. tel:[phone] Referring Provider: Alvaro Singleton OD, [facility] [address] [place], [address]. tel:[phone] [facility], [address] [place] [address] [address], [place], [place], [address], [place] [phone] [facility] No Information 2 Norman Butterfield. [address], [place], [address], [place]. tel:[phone] Referring Provider: Alvaro Singleton OD, [facility] [address] [place], [address]. tel:[phone] [facility], [address], [place], [place], [address], [place] tel:[phone] [facility] No Information 2 Norman Butterfield. [address], [place], [address], [place]. tel:[phone] Referring Provider: Alvaro Singleton OD, [facility] [address] [place], [address]. tel:[phone] [facility], [address], [place], [place], [address], [place] tel:[phone] SEC Nic [place] Professional a comprehensiv e exam (chief complaint) No Information 2 Wiley Bhakta. [address], [facility] [address], [place], [place], [address], [place]. tel:[phone] Referring Provider: Alvaro Areli OD, [facility] [address] [place], [address]. tel:[phone] [facility], [address], [place], [place], [address], [place] tel:[phone] SEC Nic [place] Professional No Information 2 Wiley Bhakta. [address], [place], [place], [address], [place]. tel:[phone] Referring Provider: Alvaro Singleton OD, [facility] [address] [place], [address]. tel:[phone] [facility], [address] [place] [address] [address], [place], [place], [address], [place] tel:[phone] [facility] No Information 2 Norman Butterfield. [address], [place], [place], [facility], [place]. tel:[phone] Referring Provider: Alvaro Singleton OD, [facility] [address] [place], [address]. tel:[phone] [facility], [address] [place] [address] [address], [place], [place], [address], [place] tel:[phone] SEC Rosamond N [place] blurry vision (chief complaint) No Information 2 Norman Butterfield. [address], [place], [place], [facility], [place]. tel:[phone] Referring Provider: Alvaro Singleton OD, [facility] [address] [place], [address]. tel:[phone] [facility], [address] [place] [address] [address], [place], [place], [address], [place] tel:[phone] SEC Rosamond N [place] No Information No Information [facility], [address] [place] [address] [address], [place], [place], [address], [place] tel:[phone] SEC [place] Professional a comprehensiv e exam (chief complaint) REGULAR ASTIGMATISMS ENILE NUCLEAR CATARACT No Information Referring Provider: Alvaro Singleton OD, [facility] [address] [place], [address]. tel:[phone] Office/outpa tient Visit, Est [facility], [address] [place] [address] [address], [place], [place], [address], [place] tel:[phone] SEC Nic [place] Professional No Information Nov-0 4-201 1 Wankum Yony. [address], [facility] [place], [place], [address], [place]. tel:[phone] Referring Provider: Alvaro Guzmanjuliano OD, [facility] [address] [place], [address]. tel:[phone] [facility], [address], [place], [place], [address], [place] tel:[phone] SEC Nic [place] Professional No Information May-0 9-201 1 Wankum Yony. [address], [facility] A, [place], [place], [address], [place]. tel:[phone] Referring Provider: Alvaro Guzmanjuliano OD, [facility] [address] [place], [address]. tel:[phone] Office/outpa tient Visit, [facility], [address], [place], [place], [address], [place] tel:[phone] SEC Nic AMADOR Professional No Information July- 9-201 0 Wankum Yony. [address], [facility] [place], [address], [place]. tel:[phone] Referring Provider: Alvaro Singleton OD, [facility] [address] [facility], [place], [address]. tel:[phone] [facility], [address], [place], [place], [address], [place] tel:[phone] SEC Nic AMADOR Professional No Information Sep-1 5-200 9 Mackeydipti Glez. [address] [place] [address], [place], [place], [address], [place]. tel:[phone] Referring Provider: Alvaro Guzmanjuliano OD, [facility] [address] [place], [address]. tel:[phone] Family History Family Member Type Diagnosis Age At Onset Mother Problem (finding) diabetes mellitus type 2 Sister Problem (finding) Retinal disease Father Problem (finding) diabetes mellitus type 2 Mother Problem (finding) degenerative disorder o f macula Payers Payer name Insurance type Covered green party ID Prem biggs(s) [facility] Commercial CI [id number] Social History Type Description Quantity Date Captured Comments Alcohol Use Details No Caffeine Use Details No Tobacco Use Status No Information Smoking Status Never smoker Sex Female Chief Complaint And Reason For Visit From encounter dated '01/12/2017 14:30'. Complete Exam (chief complaint). Description: The 51 year old female presents for Complete Exam in the right eye and left eye. Patient is pseudo ou and yag cap OD. Patient c/o blurry/decreased visionOD. Patient states her mother has macular degeneration. Patient wears OTC reading glasses. Reason For Referral Reason For Referral No Information History Of Present Illness Encounter Date Complaint History Of Prese nt Illness Complete Exam The 51 year old female presents for Complete Exam in the right eye and left eye. Patient is pseudo ou and yag cap OD. Patient c/o blurry/decreased vision OD. Patient states her mother has macular degeneration. Patient wears OTC reading glasses. decreased vision The 50 year old female presents for a YAG PC OD. Patient c/o harder to read small print. Blurry vision The 50 year old female presents for a Complete Exam OU. Hx Phaco w/ PCIOL OU. Patient c/o blurry v/a for distance and at near OD. Patient wears OTC readers. Patient denies any pain or discomfort at this time OU. Patient not taking any gtts OU. Functional Status Date Functional Assessmen t No Information Instructions Date Instruction Additional Infor esther Follow up - RTC 1 ye ar for complete exam with Wil Chan MD. Impression/Plan - Ps eudophakia OU - Patient states vision is blurrier than it used to be- Discussed health of eyes - no significant condition present to cause blur- Discussed a small glasses prescription will give her 20/20 vision OD- Educated on the benefits of bifocal lenses to sharpen vision but she still meets the legal requirements to drive without glasses- Discussed the differences between a PAL and a standard BF and the need for an adaptation perior with a PAL- Updated glasses rx given to patient today Follow up - Return i n 1 month with Yony Jama M.D. for post op exam. Impression/Plan - Pr oceed with Yag PC OD as scheduled. Patient tolerated procedure well; open pc. Patient reports strong family history of AMD. Recommend AREDS 2 formula. Return to clinic in 1 month for post op after Yag PC OD or sooner with any problems. Follow up - Schedule Yag PC OD Impression/Plan - Di scussed PCF formation with pt, discussed YAG PC for treatment. R/a/b explained. Pt understands and will schedule Yag PC OD. doing well postop ca t with iol ou - finish drops os - 6 Months FOLLOW-UP SURGERY NO S, OU OD ONE MONTHOS ONE DAY - ONE DAY POST OP OS, HEALING EXPECTED, ROUTINE DROPS, RTC 2 WEEKS. Related to FOLLOW-UP SURGERY NOS Myopic Astigmatism, OU - plan for toric iop with ce iol ou Related to Myopic Astigmatism Myopic Astigmatism, OU - plan for toric iop with ce iol ousee below Related to Myopic Astigmatism Cataract, Nuclear Sc lerosis, OU - established, worsening - vision affected - will improve with surgery - Discussed cataract diagnosis with the patient. Discussed and reviewed treatment options for cataracts. Risks and benefits of surgical procedure were explained and understood. Surgical treatment is required for cataracts. Risks and benefits of surgical treatment were discussed and understood. Patient elects surgical treatment. Pre-Op instructions given and reviewed with patient.schedule ce iol with toric lens ou Related to Cataract, Nuclear Sclerosis Assessments Type Assessment Date assessment Presence of intraocular lens Dec Patient Care Teams Name Effective Dates (start - stop) Status Members No Information
--- OUTSIDE RECORDS SUMMARY | 2024-04-06 08:46 | XMS_ITS | Encounter Summary ---
Author Organization [facility] Address [address] [place] [address] Care Team Providers Care Welding Systems And Equipment Repairer Name Role Phone Wil Araya MD Primary Care Provider [phone] Janie Gallegos [facility] Unavailable [phone] Reason for Visit * Reason Onset Date Comments Constipation 01/24/2018 pt has not bad B M since OR 01/24. Passing flatus, using colace QD, no N/V Encounter Details Date Type Department Care Team (Late st Contact Info) Description 01/29/2018 Telephone ER at [facility] [address] [place] [id number] Juan Bentley MD Constipation (pt has not bad BM since OR 01/24. Passing flatus, using colace QD, no N/V) Social History Tobacco Use Types Packs/Day Years Used Date Smoking Tobacco: Never Smokeless Tobacco: Never Alcohol Use Standard Drinks/Week Comments Yes 0 (1 standard drink = 0.6 oz pur e alcohol) rare Sex and Gender Information Value Date Recorded Sex Assigned at Not on file Gender Identity Not on file Sexual Orientation Not on file documented as of this encounter Functional Status Functional Status Response Date of Assess ment Is person deaf or have serious hearing difficult y? No 10/06/2017 Is person blind or have serious difficulty isabell g? No 10/06/2017 Does person have serious dif ficulty walking/climbing stairs? No 10/06/2017 Does person have difficulty dressing/bathing? No 10/06/2017 Does person have difficulty doing errands alone? No 10/06/2017 Cognitive Status Response Date of Assessm ent Does person have difficulty concentrating/remembering/making decisions? No 10/06/2017 documented as of this encounter Patient Instructions * Patient Instructions* Juan Bentley MD - 01/29/2018 11:36 AM HAND CANDY MOLDER Pt without BM since incisional hernia repair with mesh on 01/24. Passing flatus, denies N/V/F/C. Urinating normal frequency, maintaining nutrition. Using pain medications. Taking colace QD. Instructed to inc rease colace to BID. Pt asking if acceptable to use suppository, encouraged. Also instructed to start miralax one cap-full QD. May also use fleets enema if needed, agreeable. Instructed to call via [employer]en's pulling unit operator if no longer passing flatus, febrile, nauseated, does not have BM with above instructions in 24 hrs, or has any other concerns. CANDY MOLDER documented in this encounter Plan of Treatment Not on file documented as of this encounter Visit Diagnoses Not on filedocumented in this encounter Care Teams Welding Systems And Equipment Repairer Relationship Specialty Start Date End Date Wil Araya MD [address] [place] [address] PCP - General Family Medicine 03/23/17 Janie Gallegos LMSW 10/07/17 documented as of this encounter
--- OUTSIDE RECORDS SUMMARY | 2024-04-06 08:46 | XMS_ITS | Clinical Summary ---
Author Organization [facility] [address] [place] [address] Care Team Providers Care Assistant Banquet Manager Name Role Phone Wil Araya MD Primary Care Provider Swetha Benson [employer] Unavailable [phone] Allergies Active Allergy Reactions Criticality Noted Date [...] 1 tablet (125 mcg total) by mouth oil pipe inspector before breakfast Active azaTHIOprine (IMURAN) 50 mg [...] Hereditary and idiopathic neuropathy Numbness and tingling Encounters Date Type Department Care Team Description 03/13/2024 10:50 AM SALES SUPPORT TECHNICIAN Lab [address] [address] from Last 3 Months Immunizations Name Administration Dates Next Due Influenza, Unspecified 12/13/2022 Surgical History Surgery Date Site/Laterality Comments TOTAL ABDOMINAL HYSTERECTOMY Hysterectomy, total SECTION FOOT SURGERY HERNIA REPAIR CHOLECYSTECTOMY TONSILLECTOMY CATARACT EXTRACTION Medical History Medical History Date Comments Hx Other Medical fibromyalgia; C omments: KRISTAL 07/22/2015 - Malignant neoplasm of skin Cance r, skin; Comments: KRISTAL 07/22/2015 - Disorder of thyroid Thyroid dise ase Hypertension Hypertension Cataract High cholesterol Family History Medical History Relation Name Comments Diabetes Father Heart disease Father Heart disease; Cancer Mother Diabetes Mother Diabetes Other Family history of Diabetes mellitus; Relation Name Status Comments Father Mother Other Social History Tobacco Use Types Packs/Day Years [...] often do you attend chur ch or congregation services? Never 12/21/2022 Do you belong to any clubs o r organizations such as religion groups, unions, fraternal or athletic groups, or [...] place to sleep or slept in a penitentiary (including now)? No 12/21/2022 Personal Safety Answer [...] on file Legal Sex Female 11:43 AM SALES SUPPORT TECHNICIAN Gender Identity Not on file Sexual Orientation Not on file Obstetrics History Last Filed Vital Signs Vital Sign Reading [...] 12/19/2022 2:43 AM CDT Plan of Treatment Health Maintenance Due Date Last Done Comments Colon Cancer Screening-Colonoscopy 1966 Depression Screening 1966 Pneumococcal vaccine <65 (1 of 2 - PCV) 1972 Hepatitis B Screening 1984 Regular Well Visit/Exam 18-64 1984 Zoster Vaccine (1 of 2) 1985 Influenza Vaccine (#1) 2023 3, 12/13/2017, 12/02/2017, Additional history exists Breast Cancer Screening-Mammogram 10/03/2024 10/04/2023, 09/30/2022, 05/20/2021 DTaP/Tdap/Td Vaccine (2 - Td or Tdap) 07/20/2027 07/19/2017 Hepatitis C Screening Completed 10/13/2023, 016 Procedures Procedure Name Priority Date/Time Associated Diagnosis Comments EGFR Routine 03/13/2024 11:05 AM SALES SUPPORT TECHNICIAN URINALYSIS, MICROSCOPIC ONLY Routine 03/13/2024 11:05 AM SALES SUPPORT TECHNICIAN DIFFERENTIAL AUTO Routine 03/13/2024 11: 05 AM SALES SUPPORT TECHNICIAN URINALYSIS AND REFLEX TO MICROSCOPIC Routine 03/13/2024 11:05 AM SALES SUPPORT TECHNICIAN TSH Routine 03/13/2024 11:05 AM SALES SUPPORT TECHNICIAN ALBUMIN CREATININE RATIO, URINE Routine 03/13/2024 11:05 AM SALES SUPPORT TECHNICIAN LIPID PANEL Routine 03/13/2024 11:05 AM SALES SUPPORT TECHNICIAN COMPREHENSIVE METABOLIC PANEL Routine 03/13/2024 11:05 AM SALES SUPPORT TECHNICIAN CBC WITH AUTO DIFFERENTIAL Routine 03/13/2024 11:05 AM SALES SUPPORT TECHNICIAN HEMOGLOBIN A1C Routine 03/13/2024 11:05 AM SALES SUPPORT TECHNICIAN HEPATITIS C RNA, QUANTITATIVE, PCR Routine 10/13/2023 7:19 AM CDT from Last 3 Months or Most Recently Relevant to Health Maintenance Results * (ABNORMAL) eGFR (03/13/2024 11:05 AM SALES SUPPORT TECHNICIAN) Pathologist [facility] eGFR 50(L) >=60 mL/min/1. 73 m2 Comment: [...] of Race in Diagnosing Kidney Disease, JASN 2020). The CKD-EPI equation should not be used for patients with unstable renal function and has not been validated in children and those over 70. Current interpretive data was last reviewed 2021. Blood 03/13/2024 11:0 5 AM SALES SUPPORT TECHNICIAN 03/13/2024 11:19 AM SALES SUPPORT TECHNICIAN us Randall MCKENZIE LAB BLOOD ORDERABLES Shyla vázquez Result [facility] ([place]) 1 [facility] Department of Laboratories [place], [place] [id number] * Differential, auto (03/13/2024 11:05 AM SALES SUPPORT TECHNICIAN) Neutrophil abs 2.4 1.5 - 6.5 K/cumm Imm gran abs 0.0 0.0 - 0.1 K/cumm [facility] ([place]) Lymphocyte abs 1.2 0.8 - 3.3 K/cumm [facility] ([place]) Monocyte abs 0.4 0.2 - 0.8 K/cumm [facility] ([place]) Eosinophil abs 0.1 0.0 - 0.5 K/cumm [facility] ([place]) Basophil abs 0.0 0.0 - 0.1 K/cumm [facility] ([place]) Neutrophil pct 58.7 % [facility] ([place]) Comment: Interpretive Data Percent cell count reference ranges are not reported, since discordance with absolute values may lead to misinterpretation of CBC data. Current Interpretive Data was last revised on 2017. Imm gran pct 0.2 % [facility] ([place]) Comment: Interpretive Data Percent cell count reference ranges are not reported, since discordance with absolute values may lead to misinterpretation of CBC data. Current Interpretive Data was last revised on 2017. Lymphocyte pct 28.4 % [facility] ([place]) Comment: Interpretive Data Percent cell count reference ranges are not reported, since discordance with absolute values may lead to misinterpretation of CBC data. Current Interpretive Data was last revised on 2017. Monocyte pct 10.1 % [facility] ([place]) Comment: Interpretive Data Percent cell count reference ranges are not reported, since discordance with absolute values may lead to misinterpretation of CBC data. Current Interpretive Data was last revised on 2017. Eosinophil pct 1.9 % [facility] ([place]) Comment: Interpretive Data Percent cell [...] on 2017. Blood 03/13/2024 11:0 5 AM SALES SUPPORT TECHNICIAN 03/13/2024 11:19 AM SALES SUPPORT TECHNICIAN us Randall MCKENZIE LAB BLOOD ORDERABLES Shyla l Result [facility] ([place]) 1 [facility] Department [place] [address] * (ABNORMAL) Urinalysis reflex to microscopic (03/13/2024 11:05 AM SALES SUPPORT TECHNICIAN) Color, ur Yellow Yellow Clarity, ur Turbid(A) [...] tendency for uric acid stone formation. Source: [facility]Registry Current Interpretive Data was last revised on [...] [facility] ([place]) Urine 03/13/2024 11:0 5 AM SALES SUPPORT TECHNICIAN 03/13/2024 11:24 AM SALES SUPPORT TECHNICIAN us Randall MCKENZIE LAB URINE ORDERABLES Shyla vázquez Result [facility] ([place]) 1 [facility] [place] [address] * (ABNORMAL) CBC with auto differential (03/13/2024 11:05 AM SALES SUPPORT TECHNICIAN) WBC 4.2 3.8 - 9.9 K/cumm Hgb 13.3 11.9 - 15.5 g/dL [facility] ([place]) Hct 39.3 35.6 - 45.5 % [facility] ([place]) Plt 262 150 - 400 K/cumm [facility] ([place]) MPV 9.7 9.1 - 12.3 fL [facility] ([place]) RBC 3.80(L) 3.90 - 5.20 M/cumm [facility] ([place]) MCV 103.4(H) 81.3 - 96.4 fL [facility] ([place]) MCH 35.0(H) 27.1 - 33.3 pg [facility] ([place]) MCHC 33.8 32.3 - 35.7 g/dL [facility] ([place]) RDW CV 12.8 11.1 - 14.9 % [facility] ([place]) RDW SD 47.8 35.7 - 48.1 fL [facility] ([place]) NRBC abs 0.00 0.00 - 0.01 K/cumm [facility] ([place]) Blood 03/13/2024 11:0 5 AM SALES SUPPORT TECHNICIAN 03/13/2024 11:19 AM SALES SUPPORT TECHNICIAN Randall MCKENZIE LAB BLOOD ORDERABLES Shyla l Result [facility] ([place]) 1 [facility] [place] [address] * Albumin Creatinine Ratio, Urine (03/13/2024 11:05 AM SALES SUPPORT TECHNICIAN) Albumin Ur 27.4 mg/L Comment: Interpretive Data No reference range established. Current interpretive data was last revised 2018. Testing performed by: [address] [address] Creatinine Ur 283.9 mg/dL [facility] ([place]) Comment: Interpretive Data No reference range established. Current interpretive data was last revised 2018. Testing performed by: [address] [address] Albumin Creatinine Ratio, Ur 10 1 - 29 mg/g [facility] ([place]) Comment:Testing performed by : [address] [address] Urine 03/13/2024 11:0 5 AM SALES SUPPORT TECHNICIAN 03/13/2024 1:59 PM SALES SUPPORT TECHNICIAN Randall MCKENZIE LAB URINE ORDERABLES Shyla l Result [facility] ([place]) 1 [facility] [place] [address] * (ABNORMAL) Urinalysis, microscopic only (03/13/2024 11:05 AM SALES SUPPORT TECHNICIAN) WBC, ur 11-20(A) 0 - 5 /HPF RBC, ur 3-5(A) 0 - 2 /HPF [facility] ([place]) Epithelial cells, squamous, ur 1-5 0 - 5 /HPF [facility] ([place]) Bacteria, ur Trace(A) [facility] ([place]) Mucous, ur Present(A) [facility] ([place]) Hyaline casts, ur 11-20(A) 0 - 10 /LPF [facility] ([place]) Urine 03/13/2024 11:0 5 AM SALES SUPPORT TECHNICIAN 03/13/2024 11:24 AM SALES SUPPORT TECHNICIAN Randall MCKENZIE LAB URINE ORDERABLES Shyla l Result Performing Organization Address City/[facility]/ZIP Co de Phone Number [facility] ([place]) 1 [facility] [place] [address] * (ABNORMAL) TSH (03/13/2024 11:05 AM SALES SUPPORT TECHNICIAN) [facility] Thyroid Stimulating Hormone 0.27(L) 0.30 - 4.20 mcIUnit/mL Blood 03/13/2024 11:0 5 AM SALES SUPPORT TECHNICIAN 03/13/2024 11:19 AM SALES SUPPORT TECHNICIAN Randall MCKENZIE LAB BLOOD ORDERABLES Shyla l Result [facility] ([place]) 1 [facility] [place] [address] * (ABNORMAL) Hemoglobin A1c (03/13/2024 11:05 AM SALES SUPPORT TECHNICIAN) Hgb A1C 6.1(H) 4.0 - 5.6 % Estimated Average Glucose 128 mg/dL [facility] ([place]) Comment: The ADA recommends reporting an estimated Average Glucose (eAG) with all Hemoglobin A1c results using the equation derived from a study of 507 normal and diabetic adults. ??Minority populations were underrepresented and children were not included. ?? (Diabetes Care 31:0000-1894, 2008). ??The eAG is not equivalent to a fasting glucose. Blood 03/13/2024 11:0 5 AM SALES SUPPORT TECHNICIAN 03/13/2024 11:19 AM SALES SUPPORT TECHNICIAN us Randall MCKENZIE LAB BLOOD ORDERABLES Shyla vázquez Result [facility] ([place]) 1 [facility] [place] [address] * Lipid panel (03/13/2024 11:05 AM SALES SUPPORT TECHNICIAN) Cholesterol 198 30 - 199 mg/dL Comment: [...] mg/dL ??High: ?>160 mg/dL Calculated using the Boyce LDL-C estimating equation. This equation was implemented on 2023. Prior to this date LDL-C was estimated using the Friedewald equation. Literature References: 1. Expert Panel on Integrated Guidelines for Cardiovascular Health and Risk Reduction in Children and Adolescents. Pediatrics 2011;128:S213 2. NCEP Expert Panel. Circulation 2004;110:227 3. Austen Frederick et al. ARCELIA Cardiol. 2019July 13;5(5):540-548. doi: 10.1001/jamacardio.2020.0013 Current Interpretive Data was last revised on 2023. Non-HDL Cholesterol 137 mg/dL [facility] ([place]) Comment: Interpretive Data Ages < or [...] last revised on 2017. Chol/HDL ratio 3 [facility] Flores [facility] ([place]) Blood 03/13/2024 11:0 5 AM SALES SUPPORT TECHNICIAN 03/13/2024 11:19 AM SALES SUPPORT TECHNICIAN Randall MCKENZIE LAB BLOOD ORDERABLES Shyla vázquez Result [facility] ([place]) 1 [facility] Department of Laboratories [place], [place] [id number] * (ABNORMAL) Comprehensive metabolic panel (03/13/2024 11:05 AM SALES SUPPORT TECHNICIAN) Sodium 136 135 - 145 mmol/L Potassium, pl 4.7 3.3 - 4.9 mmol/L [facility] ([place]) Chloride 98 97 - 110 mmol/L [facility] ([place]) CO2 26 22 - 32 [...] [facility] ([place]) Blood 03/13/2024 11:0 5 AM SALES SUPPORT TECHNICIAN 03/13/2024 11:19 AM SALES SUPPORT TECHNICIAN us Randall MCKENZIE LAB BLOOD ORDERABLES Shyla vázquez Result [facility] ([place]) 1 [facility] [place] [address] * Hepatitis C (HCV) RNA PCR, quantitative Blood (10/13/2023 7:19 AM CDT) [facility] HCV RNA result Not Detected [facility] Comment: The quantifiable range of this assay is 15 IU/mL to 100,000,000 IU/mL (1.18 log IU/mL to 8.00 log IU/mL). Testing was performed by the CHENTE 6800 HCV Test ([employer] Testing performed at [facility] Current Interpretive Data was last revised on 2020 Testing performed by: [facility], [address] [facility], [place]., [address] Blood 10/13/2023 7:19 AM CDT 10/13/2023 9:41 AM CDT Narrative [facility] ([place]) - 10/14/2023 12:05 PM CDT [id number] Zbigniew Black MD LAB MICROBIOLOGY - GENERAL ORD ERABLES Final Result [facility] ([place]) 1 [facility] [place] [address] [facility] from Last 3 Months or Most Recently Relevant to Health Maintenance Insurance [facility] [place] [address] [facility] [employer] Care Teams Assistant Banquet Manager Relationship Specialty Start Date End Date Wil Araya MD [address] [facility] [address] [place] [address] PCP - General 10/07/15 Swetha Benson NP [address] [facility] [address] [place] [address] Nurse Practitioner Nurse Practitioner 07/29/21
--- OUTSIDE RECORDS SUMMARY | 2024-04-06 08:46 | XMS_ITS | Clinical Summary ---
Author Organization [facility] [employer] Address [address] [place] [address] Care Team Providers Care Stringed Instrument Tuner Name Role Phone Wil Araya MD Primary Care Provider [phone] Janie Gallegos [facility] Unavailable [phone] Source Comments [facility],non-owned Affiliates and Associated Physician Practices is amultiple site organization consisting of ambulatory clinics and hospital sitesin [place], [place], [place] and [place]. This disclosure is being madepursuant to the Care Everywhere program and may not contain all information available regarding this patient. Last updated 17.[facility] [employer] Allergies No known active allergies Medications * Be aware that medications may not be up to date on this document. Alwaysverify current medications with the patient. Medication Sig Dispensed Refills Start Date End Date Status PRAVASTATIN SODIUM PO Act saray acyclovir (ZOVIRAX) 400 MG tablet TK ONE T PO BID 0 05/19/2017 Active levothyroxine (SYNTHROID) 100 MCG tablet TK 1 T PO QD 3 08/22/2017 Active meloxicam (MOBIC) 15 MG tablet Take 15 mg by mouth as needed Active losartan (COZAAR) 25 MG tablet Take by mouth once daily Active raNITIdine (ZANTAC) 150 MG tablet Take 150 mg by mouth once daily Active Active Problems Problem Noted Date Diagnosed Date Incisional hernia, without obstruction or gangre ne 11/05/2017 Post-procedural fever 10/06/2017 Diverticulitis of colon 07/27/2017 Immunizations Name Administration Dates Next Due INFLUENZA VACCINE 12/13/2017 Family History Relation Name Status Comments Father Alive Mother Alive Social History Tobacco Use Types Packs/Day Years Used Date Smoking Tobacco: Never Smokeless Tobacco: Never Tobacco Cessation:Counseling Given: No Alcohol Use Standard Drinks/Week Comments Yes 0 (1 standard drink = 0.6 oz pur e alcohol) rare Sex and Gender Information Value Date Recorded Sex Assigned at Not on file Gender Identity Not on file Sexual Orientation Not on file Last Filed Vital Signs Vital Sign Reading Time Taken Comments Blood Pressure 139/80 05/10/2018 9:21 AM STATE ATTORNEY Pulse 84 05/10/2018 9:21 AM STATE ATTORNEY Temperature 36.7 ??C (98 ??F) 02/23/2018 12:50 PM STATE ATTORNEY Respiratory Rate 16 01/24/2018 3:51 PM STATE ATTORNEY Oxygen Saturation 99% 05/10/2018 9:21 AM STATE ATTORNEY Inhaled Oxygen Concentration 40% 09/27/2017 2 :20 PM CDT Weight 80.3 kg (177 lb) 05/10/2018 9:21 AM STATE ATTORNEY Height 152.4 cm (5') 05/10/2018 9:21 AM STATE ATTORNEY Body Mass Index 34.57 05/10/2018 9:21 AM STATE ATTORNEY Plan of Treatment Health Maintenance Due Date Last Done Comments COLOGUARD (AGES 45-75) - COLON CA SCREENING 1966 COLON MONITORING 1966 COLONOSCOPY - COLON CA SCREENING 1966 CT COLONOGRAPHY - COLON CA SCREENING 1966 Colorectal Cancer Screening 1966 FIT - COLON CA SCREENING 1966 FLEX SIG - COLON CA SCREENING 1966 MAMMOGRAM 1966 PAP SMEAR 1966 HIV SCREENING 1981 HEPATITIS C SCREENING 03/16/1984 DTAP/TDAP/TD VACCINES (1 - Tdap) 1985 HEPATITIS B VACCINE (1 of 3 - 19+ 3-dose series) 1985 PNEUMOCOCCAL VACCINE 50+ (1 of 1 - PCV) 2016 ZOSTER VACCINE (1 of 2) 2016 SCREENING FOR DIABETES 10/07/2020 8, 10/06/2017, 10/05/2017, Additional history exists COVID-19 VACCINE (2023- season) 2023 INFLUENZA VACCINE (#1) 2023 8, 12/02/2017, 12/17/2016, Additional history exists DEPRESSION SCREENING 03/15/2024 HIB VACCINE Aged Out No longer eligi ble based on patient's age to complete this topic HPV VACCINE Aged Out No longer eligi ble based on patient's age to complete this topic MENINGOCOCCAL (Group B) VACCINE Aged Out No longer eligible based on patient's age to complete this topic MENINGOCOCCAL VACCINE Aged Out No aba jocelyne eligible based on patient's age to complete this topic PNEUMOCOCCAL VACCINE Aged Out No long er eligible based on patient's age to complete this topic Medical Devices Implanted Type Area Staple Processing Machine Operator Device Identifier Shelf Expiration Date Model / Serial / Lot Mesh Srg Ventralight St Sepra 8x6in Implanted:Qty: 1 on 01/24/2018 by Wil Cleaning MD at [facility] 10/10/2019 [id number] / / [id number] Procedures Procedure Name Priority Date/Time Associated Diagnosis Comments BASIC METABOLIC PANEL (CALCIUM TOTAL) STAT 10/07/2017 8:51 AM CDT from Last 3 Months or Most Recently Relevant to Health Maintenance Results * (ABNORMAL) BASIC METABOLIC PANEL (CALCIUM TOTAL) (10/07/2017 8:51 AM CDT) BUN 5(L) 7 - 26 mg/dL 10/07/2017 9:13 AM [facility] Creatinine 0.7 0.6 - 1.2 mg/dL 10/07/2017 9:13 AM [facility] Sodium 140 136 - 145 mmol/L 10/07/2017 9:13 AM [facility] Potassium 3.5 3.5 - 4.5 mmol/L 10/07/2017 9:13 AM [facility] Chloride 105 98 - 107 mmol/L 10/07/2017 9:13 AM [facility] CO2 25 22 - 29 mmol/L 10/07/2017 9:13 AM [facility] Glucose 136(H) 70 - 115 mg/dL 10/07/2017 9:13 AM [facility] Calcium 8.6 8.4 - 10.2 mg/dL 10/07/2017 9:13 AM [facility] Anion Gap 14 8 - 18 10/07/2017 9:13 AM [facility] BUN/Creatinine Ratio 7 7 - 23 10/07/2017 9:13 AM [facility] Osmolality Calculated 289 270 - 300 mOsm/kg 10/07/2017 9:13 AM [facility] eGFR >60 >60 mL/min/1.7 3 m2 10/07/2017 9:13 AM [facility] Blood BLOOD SPECIMEN / Unknown Venipuncture / Unknown 10/07/2017 8:51 AM T 10/07/2017 8:54 AM [facility] Melecio Awad DO LAB - CHEMISTRY AUBREE BANUELOS Performing Organization Address City/State/[facility] Co de Phone Number [facility] [address] [phone] from Last 3 Months or Most Recently Relevant to Health Maintenance Advance Directives * Full Code (Latest Code Status on File) Date Activated Date Inactivated Comments 01/24/2018 7:14 AM 01/24/2018 5:29 PM * Full Code Date Activated Date Inactivated Comments 10/06/2017 12:36 AM 10/07/2017 4:39 PM * Full Code Date Activated Date Inactivated Comments 09/27/2017 6:07 PM 09/29/2017 1:21 PM * Full Code Date Activated Date Inactivated Comments 09/27/2017 7:49 AM 09/27/2017 6:07 PM Care Teams Stringed Instrument Tuner Relationship Specialty Start Date End Date Wil Araya MD [address] [place] [id number] PCP - General Family Medicine 03/23/17 Janie Gallegos [facility] 10/07/17
--- OUTSIDE RECORDS SUMMARY | 2024-04-06 08:46 | XMS_ITS | Patient Health Summary ---
Author Organization [facility] Address [address] [place] [address] Care Team Providers [facility] Clinical Marketer Name Role Phone Wil Araya MD Primary Care Provider [phone] Janie Gallegos [facility] [place], [place] Unavailable [phone] Note from [facility],non-owned Affiliates and Associated Physician Practices is amultiple site organization consisting of ambulatory clinics and hospital sitesin [place], [place], [place] and [place]. This disclosure is being madepursuant to the Care Everywhere program and may not contain all information available regarding this patient. Last updated 17.[facility] Allergies No known active allergies Medications * Be aware that medications may not be up to date on this document. Alwaysverify current medications with the patient. * PRAVASTATIN SODIUM PO * acyclovir (ZOVIRAX) 400 MG tablet(Started 05/19/2017) TK ONE T PO BID * levothyroxine (SYNTHROID) 100 MCG tablet(Started 08/22/2017) TK 1 T PO QD 3 refills left * meloxicam (MOBIC) 15 MG tablet Take 15 mg by mouth as needed * losartan (COZAAR) 25 MG tablet Take by mouth once daily * raNITIdine (ZANTAC) 150 MG tablet Take 150 mg by mouth once daily Active Problems Problem Noted Date Diagnosed Date Incisional hernia, without obstruction or gangre ne 11/05/2017 Post-procedural fever 10/06/2017 Diverticulitis of colon 07/27/2017 Immunizations * INFLUENZA VACCINE(Given 12/13/2017) Social History Tobacco Use Types Packs/Day Years [...] Comments Blood Pressure 139/80 05/10/2018 9:21 AM [facility] Pulse 84 05/10/2018 9:21 AM [facility] Temperature 36.7 ??C (98 ??F) 02/23/2018 12:50 PM [facility] Respiratory Rate 16 01/24/2018 3:51 PM [facility] Oxygen Saturation 99% 05/10/2018 9:21 AM [facility] Inhaled Oxygen Concentration 40% 09/27/2017 2 :20 PM CDT Weight 80.3 kg (177 lb) 05/10/2018 9:21 AM [facility] Height 152.4 cm (5') 05/10/2018 9:21 AM [facility] Body Mass Index 34.57 05/10/2018 9:21 AM [facility] Medical Devices Implanted Type Area Inspector Fibrous Wallboard Device Identifier Shelf Expiration Date Model / Serial / Lot Mesh Srg Ventralight St Sepra 8x6in Implanted:Qty: 1 on 01/24/2018 by Wil Cleaning MD at [facility] [employer] 10/10/2019 [id number] / / [id number] Procedures * XR KNEE LEFT 4VW OR MORE(Performed 07/09/2022) Performed for Seronegative rheumatoid arthritis of multiple sites (HCC) * XR FOOT LEFT 3VW OR MORE(Performed 05/11/2022) Performed for Seronegative rheumatoid arthritis of multiple sites (HCC), Left foot pain * XR CHEST 2VW(Performed 03/28/2019) Performed for Inflammatory polyarthritis (HCC), Positive PHILIP (antinuclear antibody), SOB (shortnessof breath) * CARDIAC EKG ORDER(Performed 02/21/2018) * CARDIAC RHYTHM STRIP ORDER(Performed 01/26/2018) * ENDOTRACHEAL TUBE NOTE(Performed 01/24/2018) * LAPAROSCOPIC REPAIR INCISIONAL HERNIA(Performed 01/24/2018) Performed for Diagnosis unknown * CBC W AUTO DIFFERENTIAL(Performed 10/07/2017) * PHOSPHORUS BLOOD(Performed 10/07/2017) * MAGNESIUM BLOOD(Performed 10/07/2017) * BASIC METABOLIC PANEL (CALCIUM TOTAL)(Performed 10/07/2017) * CARDIAC EKG ORDER(Performed 10/07/2017) * PHOSPHORUS BLOOD(Performed 10/06/2017) * MAGNESIUM BLOOD(Performed 10/06/2017) * BASIC METABOLIC PANEL (CALCIUM TOTAL)(Performed 10/06/2017) * CBC W AUTO DIFFERENTIAL(Performed 10/06/2017) * CT ABDOMEN PELVIS W CONTRAST(Performed 10/05/2017) Performed for Post-procedural fever * XR CHEST 2VW(Performed 10/05/2017) Performed for Post-procedural fever * URINALYSIS W/MICROSCOPIC NO CULTURE(Performed 10/05/2017) * COMPREHENSIVE METABOLIC PANEL(Performed 10/05/2017) * CBC W AUTO DIFFERENTIAL(Performed 10/05/2017) * PHOSPHORUS BLOOD(Performed 10/05/2017) * MAGNESIUM BLOOD(Performed 10/05/2017) * CBC W AUTO DIFFERENTIAL(Performed 09/29/2017) * BASIC METABOLIC PANEL (CALCIUM TOTAL)(Performed 09/29/2017) * PHOSPHORUS BLOOD(Performed 09/28/2017) * MAGNESIUM BLOOD(Performed 09/28/2017) * CBC W AUTO DIFFERENTIAL(Performed 09/28/2017) * BASIC METABOLIC PANEL (CALCIUM TOTAL)(Performed 09/28/2017) * PT EVAL AND TREAT(Performed 09/27/2017) Performed for Diverticulitis of colon * OT EVAL AND TREAT(Performed 09/27/2017) Performed for Diverticulitis of colon * CBC W AUTO DIFFERENTIAL(Performed 09/27/2017) Performed for Diverticulitis of colon * BASIC METABOLIC PANEL (CALCIUM TOTAL)(Performed 09/27/2017) Performed for Diverticulitis of colon * PATHOLOGY TISSUE(Performed 09/27/2017) Performed for Diverticulitis of colon * ARTERIAL LINE NOTE(Performed 09/27/2017) * ROBOTIC ASSISTED SIGMOID/LEFT COLECTOMY(Performed 09/27/2017) Performed for Diverticulitis of colon * ENDOTRACHEAL TUBE NOTE(Performed 09/27/2017) * ABO TYPE: RETYPE-PATIENT RESULT ONLY(Performed 09/27/2017) * TYPE + SCREEN PANEL(Performed 09/27/2017) * BASIC METABOLIC PANEL (CALCIUM TOTAL)(Performed 09/27/2017) Performed for Diverticulitis of colon * CBC W/O DIFFERENTIAL(Performed 09/27/2017) Performed for Pre-op evaluation * CT ABDOMEN PELVIS W CONTRAST(Performed 09/21/2017) Performed for Diverticulitis of colon * CREATININE BLOOD - POCT (IP) [facility](Performed 09/21/2017) Performed for Diverticulitis of colon * STREP A SCREEN - POINT OF CARE (AMB) STL(Performed 03/23/2017) Performed for Acute nasopharyngitis (common cold) Results * XR KNEE LEFT 4VW OR MORE (07/09/2022 10:06 AM CDT) Anatomical Region Laterality Modality Lower Extremity Radiographic Zayda ging 07/09/2022 10:4 0 AM CDT Impressions 07/09/2022 10:42 AM CDT IMPRESSION: No acute fracture or osseous abnormality. > Interpreting Provider: Yenni Mcpherson MD on 07/09/2022 10:42 AM Narrative 07/09/2022 10:42 AM CDT PROCEDURE: ??XR KNEE LEFT 4VW OR MORE DATE/TIME OF EXAM: ??07/09/2022 10:06 AM CLINICAL INFORMATION: None relevant/not provided if blank. Indication: M06.09: Rheumatoid arthritis without rheumatoid factor, multiple sites (CMS/HCC) Additional History: COMPARISON: None. FINDINGS: No acute fracture or dislocation is seen. Joint spaces are maintained. Procedure Note Yenni Mcpherson MD - 07/09/2022 PROCEDURE: XR KNEE LEFT 4VW OR MORE DATE/TIME OF EXAM: 07/09/2022 10:06 AM CLINICAL INFORMATION: None relevant/not provided if blank. Indication: M06.09: Rheumatoid arthritis without rheumatoid factor, multiple sites (CMS/HCC) Additional History: COMPARISON: None. FINDINGS: No acute fracture or dislocation is seen. Joint spaces are maintained. IMPRESSION: No acute fracture or osseous abnormality. > Interpreting Provider: Yenni Mcpherson MD on 07/09/2022 10:42 AM Zbigniew Black MD DIAGNOSTIC IMAGING O RDERABLES * XR FOOT 3+ VW LEFT (05/11/2022 9:45 AM [facility]) Anatomical Region Laterality Modality Ankle / Foot Radiographic Zayda ging 05/11/2022 12:2 8 PM [facility] Impressions 05/11/2022 12:29 PM [facility] IMPRESSION: No radiographic evidence of acute fracture or dislocation. Mild periarticular demineralization and mild periarticular soft tissue swelling. Radiographs alone do not fully evaluate the foot in a patient with known rheumatoid arthritis. Consider enhanced MRI. > Interpreting Provider: Rosita Soler MD on 05/11/2022 12:29 PM Narrative 05/11/2022 12:29 PM [facility] PROCEDURE: ??XR FOOT LEFT 3VW OR MORE Date/Time of Exam: 05/11/2022 9:45 AM INDICATION: ??M06.09: Rheumatoid arthritis without rheumatoid factor, multiple sites ([facility]) M79.672: Pain in left foot . Comparison: ??None. Reading Location: ??Home Office, [facility] [address] Findings: Mild periarticular demineralization. Mild periarticular soft tissue swelling. No focal erosion. No radiographic evidence of acute fracture or dislocation. No chondrocalcinosis or periarticular calcification. Small broad-based plantar calcaneal enthesophyte. Pretibial atherosclerosis and phleboliths are seen. Procedure Note Rosita Soler MD - 05/11/2022 PROCEDURE: XR FOOT LEFT 3VW OR MORE Date/Time of Exam: 05/11/2022 9:45 AM INDICATION: M06.09: Rheumatoid arthritis without rheumatoid factor, multiple sites ([facility]) M79.672: Pain in left foot . Comparison: None. Reading Location: [place] [facility], [facility] [address] Findings: Mild periarticular demineralization. Mild periarticular soft tissue swelling. No focal erosion. No radiographic evidence of acute fractureor dislocation. No chondrocalcinosis or periarticular calcification. Small broad-based plantar calcaneal enthesophyte. Pretibial atherosclerosis and phleboliths are seen. IMPRESSION: No radiographic evidence of acute fracture or dislocation. Mild periarticular demineralization and mild periarticular soft tissue swelling. Radiographs alone do not fully evaluate the foot in a patient with known rheumatoid arthritis. Consider enhanced MRI. > Interpreting Provider: Rosita Soler MD on 05/11/2022 12:29 PM Zbigniew Black MD DIAGNOSTIC IMAGING O RDERABLES * XR CHEST 2VW (03/28/2019 1:15 PM [facility]) Only the most recent of2 resultswithin the time period is included. Anatomical Region Laterality Modality Chest Radiographic Zayda ging 03/28/2019 1:19 PM [facility] Impressions 03/28/2019 1:20 PM [facility] Normal two-view chest x-ray. Reading Radiologist: Yanelis Cole MD on 03/28/2019 at 1:20 PM Narrative 03/28/2019 1:20 PM [facility] PA AND LATERAL CHEST INDICATION: Shortness of breath, positive PHILIP, inflammatory polyarthritis FINDINGS: PA and lateral views of the chest show the lungs to be expanded and clear. The cardiac and mediastinal silhouettes and pulmonary vascularity are within normal limits. Procedure Note Yanelis Cole MD - 03/28/2019 PA AND LATERAL CHEST INDICATION: Shortness of breath, positive PHILIP, inflammatory polyarthritis FINDINGS: PA and lateral views of the chest show the lungs to be expanded and clear. The cardiac and mediastinal silhouettes and pulmonary vascularity are within normal limits. IMPRESSION Normal two-view chest x-ray. Reading Radiologist: Yanelis Cole MD on 03/28/2019 at 1:20 PM Zbigniew Black MD DIAGNOSTIC IMAGING O RDOMNO * CARDIAC EKG ORDER (02/21/2018 9:30 AM [facility]) Only the most recent of2 resultswithin the time period is included. Narrative 02/21/2018 9:30 AM [facility] Ordered by an unspecified provider. Scanned Document CARDIAC SERVICES ORD ERABLES * CARDIAC RHYTHM STRIP ORDER (01/26/2018 3:22 PM [facility]) Narrative 01/26/2018 3:22 PM [facility] Ordered by an unspecified provider. Scanned Document CARDIAC SERVICES ORD ERABLES * (ABNORMAL) CBC W AUTO DIFFERENTIAL (10/07/2017 9:29 AM CDT) Only the most recent of6 resultswithin the time period is included. WBC 9.7 3.5 - 10.5 10? 3 /uL 10/07/2017 9:55 AM [facility] RBC 3.47(L) 3.90 - 5.00 10? 6 /uL 10/07/2017 9:55 AM [facility] Hemoglobin 10.5(L) 12.0 - 15.5 g/dL 10/07/2017 9:55 AM [facility] Hematocrit 31.5(L) 35.0 - 45.0 % 10/07/2017 9:55 AM [facility] MCV 90.8 81.0 - 97.0 fL 10/07/2017 9:55 AM [facility] MCH 30.3 28.0 - 34.0 pg 10/07/2017 9:55 AM [facility] MCHC 33.3 32.0 - 36.0 g/dL 10/07/2017 9:55 AM [facility] Platelet Count 284 150 - 400 10? 3 /uL 10/07/2017 9:55 AM [facility] RDW-SD 43.3 36.0 - 50.0 fL 10/07/2017 9:55 AM [facility] RDW-CV 13.2 11.2 - 14.8 % 10/07/2017 9:55 AM [facility] MPV 9.6 9.3 - 12.8 fL 10/07/2017 9:55 AM [facility] nRBC Absolute 0.00 0 10? 3 /uL 10/07/2017 9:55 AM [facility] nRBC Auto 0.0 0 /100 WBC 10/07/2017 9:55 AM [facility] Neutrophils % 67.9 35.0 - 70.0 % 10/07/2017 9:55 AM [facility] Lymphocytes % 15.6(L) 19.7 - 55.1 % 10/07/2017 9:55 AM [facility] Monocytes % 13.3 3.0 - 15.0 % 10/07/2017 9:55 AM [facility] Eosinophils % 3.0 0.0 - 6.0 % 10/07/2017 9:55 AM [facility] Basophil % 0.2 0.0 - 1.5 % 10/07/2017 9:55 AM [facility] Neutrophils Absolute 6.6 1.6 - 7.0 10? 3 /uL 10/07/2017 9:55 AM [facility] Lymphocyte Absolute 1.5 0.8 - 2.9 10? 3 /uL 10/07/2017 9:55 AM [facility] Monocytes Absolute 1.28(H) 0.14 - 0.66 10? 3 /uL 10/07/2017 9:55 AM [facility] Eosinophils Absolute 0.29(H) 0.00 - 0.22 10? 3 /uL 10/07/2017 9:55 AM [facility] Basophils Absolute 0.02 0.00 - 0.06 10? 3 /uL 10/07/2017 9:55 AM [facility] Immature Granulocytes % 0.2 0.0 - 1.0 % 10/07/2017 9:55 AM [facility] Blood BLOOD SPECIMEN / Unknown Venipuncture / Unknown 10/07/2017 9:29 AM CDT 10/07/2017 9:38 AM CDT Melecio Awad DO LAB - HEMATOLOGY ORD ERABLES [facility] [address] [place] [address] * (ABNORMAL) BASIC METABOLIC PANEL (CALCIUM TOTAL) (10/07/2017 8:51 AM CDT) Only the most recent of6 resultswithin the time period is included. BUN 5(L) 7 - 26 mg/dL 10/07/2017 9:13 AM [facility] Creatinine 0.7 0.6 - 1.2 mg/dL 10/07/2017 9:13 AM [facility] Sodium 140 136 - 145 mmol/L 10/07/2017 9:13 AM [facility] Potassium 3.5 3.5 - 4.5 mmol/L 10/07/2017 9:13 AM [facility] Chloride 105 98 - 107 mmol/L 10/07/2017 9:13 AM [facility] CO2 25 22 - 29 mmol/L 10/07/2017 9:13 AM [facility] Glucose 136(H) 70 - 115 mg/dL 10/07/2017 9:13 AM [facility] Calcium 8.6 8.4 - 10.2 mg/dL 10/07/2017 9:13 AM [facility] Anion Gap 14 8 - 18 10/07/2017 9:13 AM [facility] BUN/Creatinine Ratio 7 7 - 23 10/07/2017 9:13 AM [facility] Osmolality Calculated 289 270 - 300 mOsm/kg 10/07/2017 9:13 AM [facility] eGFR >60 >60 mL/min/1.7 3 m2 10/07/2017 9:13 AM [facility] Blood BLOOD SPECIMEN / Unknown Venipuncture / Unknown 10/07/2017 8:51 AM CDT 10/07/2017 8:54 AM CDT [facility] LAB - CHEMISTRY [facility] Performing Organization Address City/[facility]/ZIP Co de Phone Number [address] [phone] * PHOSPHORUS BLOOD (10/07/2017 8:51 AM CDT) Only the most recent of4 resultswithin the time period is included. Phosphorus 2.7 2.3 - 4.7 mg/dL 10/07/2017 9:13 AM [facility] Blood BLOOD SPECIMEN / Unknown Venipuncture / Unknown 10/07/2017 8:51 AM CDT 10/07/2017 8:54 AM CDT [facility] [address] [phone] * MAGNESIUM BLOOD (10/07/2017 8:51 AM CDT) Only the most recent of4 resultswithin the time period is included. Magnesium 1.9 1.6 - 2.6 mg/dL 10/07/2017 9:13 AM CDT [facility] Blood BLOOD SPECIMEN / Unknown Venipuncture / Unknown 10/07/2017 8:51 AM CDT 10/07/2017 8:54 AM CDT Maryannesther Awad LAB - CHEMISTRY ORDE [place] [facility] [address] [place] [address] * CT ABDOMEN PELVIS W CONTRAST (10/05/2017 11:01 PM CDT) Only the most recent of2 resultswithin the time period is included. Anatomical Region Laterality Modality Abdomen, Pelvis Computed Tomogra phy 10/05/2017 11:1 1 PM CDT Impressions 10/06/2017 4:46 PM CDT IMPRESSION: 1. Interval postoperative appearance of robotic sigmoid colon resection with wall thickening of the colon/rectum adjacent to the operative site, adjacent mesenteric fat stranding, small volume free pelvic fluid. These findings likely represent postsurgical change; however, superimposed infection/inflammation cannot be completely excluded. No evidence of abscess formation in the abdomen or pelvis. 2. Interval development of a ventral hernia in the lower right anterior abdominal wall containing fat and multiple loops of small bowel without evidence of obstruction. Locules of gas in the right anterior abdominal wall are likely postsurgical. Findings were discussed with Dr. Kenyon by Dr. Magaña on 10/06/2017 at 12:01 AM Dictated by Kris Magaña MD (radiology physician assistant). I, Dr. Elizabeth DOWNEY M.D. have personally reviewed and interpreted this examination/study. This report was electronically signed by Elizabeth DOWNEY M.D. ??on 10/06/2017 4:46 PM . Narrative 10/06/2017 4:46 PM CDT EXAMINATION: Computed tomography (CT) of the abdomen and pelvis with contrast HISTORY: Recurrence diverticulitis status post robotic sigmoid resection on 09/27/2017, now with back pain and fever TECHNIQUE: CT of the abdomen and pelvis was performed following the uneventful administration of 100 mL of Isovue-370 intravenous contrast according to standard protocol. COMPARISON: Comparison is made with a study from 09/21/2017. FINDINGS: The aorta is atherosclerotic but normal in caliber. Mild bilateral dependent atelectasis is present. Otherwise no focal consolidation is seen in the visible lung bases. The heart size is normal without pericardial effusion. The liver enhances homogenously. The gallbladder is surgically absent. The intrahepatic ducts are nondilated. The common bile duct is dilated, measuring 10 mm, unchanged and likely related to the postcholecystectomy state. The spleen enhances homogenously without focal lesion. The pancreas and adrenal glands are normal. The kidneys enhance symmetrically. There is no evidence of renal calculus or hydronephrosis. The distal esophagus and stomach appear normal. Oral contrast opacifies the stomach, multiple loops of small bowel, and portions of the colon. Postoperative changes of sigmoid resection are identified with suture material in the rectosigmoid region. There is wall thickening of the rectum and descending colon proximal and distal to the suture material with adjacent mesenteric fat stranding and small volume free pelvic fluid. No well-defined fluid collection suggestive of abscess is identified. There has been interval development of a ventral hernia through the lower right anterior abdominal wall containing fat and multiple loops of contrast opacified small bowel without evidence of obstruction. The neck of the hernia measures 2.5 cm in transverse dimension. Multiple foci of gas within the right lower anterior abdominal wall adjacent to the recently developed ventral hernia are likely secondary to recent surgery with trocar placement. The appendix appears normal without appendicolith or surrounding inflammatory changes. No free air or free fluid is identified within the abdomen. There is no abdominal lymphadenopathy. The urinary bladder is distended with fluid and appears normal. The uterus is absent. No free fluid is seen within the pelvis. There is no pelvic lymphadenopathy. Bone windows demonstrate no suspicious lytic or blastic lesions. The visible osseous structures are intact. Procedure Note Lali Downey MD - 10/06/2017 EXAMINATION: Computed tomography (CT) of the abdomen and pelvis with contrast HISTORY: Recurrence diverticulitis status post robotic sigmoid resection on 09/27/2017, now with back pain and fever TECHNIQUE: CT of the abdomen and pelvis was performed following the uneventful administration of 100 mL of Isovue-370 intravenous contrast according to standard protocol. COMPARISON: Comparison is made with a study from 09/21/2017. FINDINGS: The aorta is atherosclerotic but normal in caliber. Mild bilateral dependent atelectasis is present. Otherwise no focal consolidation is seen in the visible lung bases. The heart size isnormal without pericardial effusion. The liver enhances homogenously. The gallbladder is surgically absent.The intrahepatic ducts are nondilated. The common bile duct is dilated, measuring 10 mm, unchanged and likely related to the postcholecystectomy state. The spleen enhances homogenously without focal lesion. Thepancreas and adrenal glands are normal. The kidneys enhance symmetrically. Thereis no evidence of renal calculus or hydronephrosis. The distal esophagus and stomach appear normal. Oral contrast opacifies the stomach, multiple loops of small bowel, and portions of the colon. Postoperative changes of sigmoid resection are identified with suture material in the rectosigmoid region. There is wall thickening of the rectum and descending colon proximal and distal to the suture material with adjacent mesenteric fat stranding and small volume free pelvicfluid. No well-defined fluid collection suggestive of abscess is identified. There has been interval development of a ventral hernia through thelower right anterior abdominal wall containing fat and multiple loops of contrast opacified small bowel without evidence of obstruction. The neck of the hernia measures 2.5 cm in transverse dimension. Multiple foci of gas within the right lower anterior abdominal wall adjacent to the recently developed ventral hernia are likely secondary to recent surgery with trocar placement. The appendix appears normal without appendicolith or surrounding inflammatory changes. No free air or free fluid is identified within the abdomen. There is no abdominal lymphadenopathy. The urinary bladder is distended with fluid and appears normal. Theuterus is absent. No free fluid is seen within the pelvis. There is no pelvic lymphadenopathy. Bone windows demonstrate no suspicious lytic or blastic lesions. The visible osseous structures are intact. IMPRESSION: 1. Interval postoperative appearance of robotic sigmoid colon resection with wall thickening of the colon/rectum adjacent to the operative site, adjacent mesenteric fat stranding, small volume free pelvic fluid. These findings likely represent postsurgical change; however, superimposed infection/inflammation cannot be completely excluded. No evidence of abscess formation in the abdomen or pelvis. 2. Interval development of a ventral hernia in the lower right anterior abdominal wall containing fat and multiple loops of small bowel without evidence of obstruction. Locules of gas in the right anterior abdominal wall are likely postsurgical. Findings were discussed with Dr. Kenyon by Dr. Magaña on 10/06/2017 at 12:01 AM Dictated by Kris Magaña MD (radiology physician assistant). Dr. Elizabeth Goodman M.D. have personally reviewed and interpretedthis examination/study. This report was electronically signed by Elizabeth DOWNEY M.D. on 10/06/2017 4:46 PM . Bernice Hagan MD CT ORDERABLES * (ABNORMAL) URINALYSIS W/MICROSCOPIC NO CULTURE (10/05/2017 8:39 PM CDT) Color UA Yellow Straw, Yellow, Colorless, Light Yellow 10/05/2017 8:50 PM [facility] Clarity UA Clear Clear 10/05/2017 8:50 PM [facility] Specific Manson UA 1.025 1.001 - 1.030 10/05/2017 8:50 PM [facility] pH UA 5.5 5.0 - 8.0 10/05/2017 8:50 PM [facility] Protein UA 20(A) <=20 mg/dL 10/05/2017 8:50 PM [facility] Glucose UA Negative Negative mg/dL 10/05/2017 8:50 PM [facility] Ketone UA Negative Negative mg/dL 10/05/2017 8:50 PM [facility] Bilirubin UA Negative Negative mg/dL 10/05/2017 8:50 PM [facility] Blood UA Negative Negative 10/05/2017 8:50 PM [facility] Nitrite UA Negative Negative 10/05/2017 8:50 PM [facility] Leukocyte Esterase Negative Negative 10/05/2017 8:50 PM [facility] Urobilinogen UA <2.0 <2.0 mg/dL 8 8:50 PM [facility] RBC UA 3 0 - 8 /HPF 10/05/2017 8:50 PM [facility] WBC UA 3(H) 0 - 2 /HPF 10/05/2017 8:50 PM [facility] Squamous Epithelial Cells UA 1 0 - 1 /HPF 10/05/2017 8:50 PM [facility] Mucus UA Few(A) None /LPF 10/05/2017 8:50 PM [facility] Transitional Epitelial Cells UA <1 0 - 1 /HPF 10/05/2017 8:50 PM T [facility] Hyaline Casts UA 1 0 - 2 /LPF 10/06/19 18 8:50 PM [facility] Urine URINE SPECIMEN OBTAINED BY CLEAN CATCH PROCEDURE / Unknown Collection / Unknown 10/05/2017 8:39 PM CDT 10/05/2017 8:44 PM CDT Bernice Hagan MD LAB - URINALYSIS ORD ERABLES [facility] [address] [phone] * (ABNORMAL) COMPREHENSIVE METABOLIC PANEL (10/05/2017 8:27 PM CDT) BUN 18 7 - 26 mg/dL 10/05/2017 9:08 PM [facility] Creatinine 1.1 0.6 - 1.2 mg/dL 10/05/2017 9:08 PM [facility] Sodium 137 136 - 145 mmol/L 10/05/2017 9:08 PM [facility] Potassium 4.9(H) 3.5 - 4.5 mmol/L 10/05/2017 9:08 PM [facility] Comment: Hemolysis detected in this specimen. Hemolysis is known to cause elevations in this analyte. Caution should be exercised in the interpretation of this result. Recommend repeat testing if clinically indicated. Chloride 101 98 - 107 mmol/L 10/05/2017 9:08 PM [facility] CO2 22 22 - 29 mmol/L 10/05/2017 9:08 PM [facility] Glucose 130(H) 70 - 115 mg/dL 10/05/2017 9:08 PM [facility] Calcium 9.6 8.4 - 10.2 mg/dL 10/05/2017 9:08 PM [facility] Protein Total 7.4 6.0 - 8.3 g/dL 10/05/2017 9:08 PM [facility] Comment:Hemolysis detected i n this specimen. Hemolysis is known to cause elevations in this analyte. Caution should be exercised in the interpretation of this result. Recommend repeat testing if clinically indicated. Albumin 3.6 3.4 - 5.0 g/dL 10/05/2017 9:08 PM [facility] Bilirubin Total 0.6 0.2 - 1.2 mg/dL 10/05/2017 9:08 PM [facility] Alkaline Phosphatase 60 40 - 150 Units/L 10/05/2017 9:08 PM [facility] ALT 25 0 - 55 Units/L 10/05/2017 9:08 PM [facility] AST 27 5 - 34 Units/L 10/05/2017 9:08 PM [facility] Comment: Hemolysis detected in this specimen. Hemolysis is known to cause elevations in this analyte. Caution should be exercised in the interpretation of this result. Recommend repeat testing if clinically indicated. Anion Gap 19(H) 8 - 18 10/05/2017 9:08 PM [facility] BUN/Creatinine Ratio 16 7 - 23 10/05/2017 9:08 PM [facility] Osmolality Calculated 288 270 - 300 mOsm/kg 10/05/2017 9:08 PM [facility] Albumin/Globulin Ratio 0.9(L) 1.1 - 2.3 10/05/2017 9:08 PM [facility] eGFR 52(L) >60 mL/min/1. 73 m2 10/05/2017 9:08 PM [facility] Blood BLOOD SPECIMEN / Unknown Venipuncture / Unknown 10/05/2017 8:27 PM CDT 10/05/2017 8:30 PM CDT Bernice Hagan MD LAB - CHEMISTRY AUBREE BANUELOS [facility] [address] [place] [address] * PATHOLOGY TISSUE (09/27/2017 11:35 AM CDT) Case Report Surgical Pathology Report ? Case: [id number] ? Authorizing Provider: ??Seema Mason MD ?Collected: ? 09/27/2017 11:35 AM ? Ordering Location: ? [facility] ? Received: ?09/27/2017 03:29 PM ? Pathologist: ? Gabby Ramsey MD ? Specimens: ?? A) - Colon, 1. Sigmoid colon for perm ? B) - Large Intestine, Sigmoid Colon, 2. Proximal donut for perm ? C) - Large Intestine, Sigmoid Colon, 3. Distal donut for perm ? 09/28/2017 2:33 PM CDT [facility] Final Diagnosis Large intestine, sigmoid colon, segmental resection(A): - Diverticular disease - Surgical margins viable - One lymph node with no histopathologic abnormality (0/1) Large intestine, sigmoid colon, proximal donut, segmental resection(B): - Benign colonic tissue Large intestine, sigmoid colon, distal donut, segmental resection(C): - Benign colonic tissue 09/28/2017 2:33 PM [facility] Microscopic Description and Comment Microscopic examination substantiates the final diagnosis. 09/28/2017 2:33 PM T [facility] Clinical History The patient is a 52-year-old female with multiple bouts of recurrent diverticulitis, last bout being 2 weeks ago. 09/28/2017 2:33 PM [facility] Gross Description The specimens are received in formalin in three containers each labeled with the patient's name, Cleopatra Stover Specimen A, 1. Sigmoid colon , consists of a segment of large intestine (13.2 cm in length with a diameter up to 2.4 cm). There are two linear malik present each measuring 2.5 cm and 4.3 cm. The serosa is pink-ramírez and smooth. The attached pericolonic adipose tissue is yellow, glistening with no evidence of exudative material. The mesenteric margin comes to within 4.5 cm from the colonic serosa. The specimen is opened revealing pink-ramírez mucosa with mucosal folds and multiple diverticula. No tumor mass formation is identified. The bowel wall thickness ranges from 0.3 to 0.5 cm. A total of seven potential lymph nodes are found. Resource Forester sections are submitted as follows: A1 - mesenteric margin A2 - one surgical margin, shave A3 - the opposing surgical margin, shave A4&A5 - diverticula A6 - seven potential lymph nodes Specimen B, 2. Proximal donut , consists of a portion of donut-shaped, brown-ramírez mucosa measuring 1.8 x 1.7 cm with a thickness up to 1.2 cm. The specimen is serially sectioned and customer loyalty representative section is submitted in cassette B1. Specimen C, 3. Distal donut , consists of a donut-shaped portion of brown-ramírez mucosa measuring 1.5 x 1.4 cm with a thickness up to 0.9 cm. The specimen is serially sectioned and customer loyalty representative section is submitted in cassette C1. Mei 09/28/2017 2:33 PM [facility] Disclaimer The performance characteristics of all immunohistochemical and indirect immunofluorescence stains (if any) cited in this report were determined by the Histopathology Laboratory of [facility]. Some of these tests were developed by our own laboratory and have not been cleared or approved by the US Food and Drug Administration. The FDA does not require this test to go through premarket FDA review. These tests are used for clinical purposes. They should not be regarded as investigational or for research. This laboratory is certified under the Clinical Laboratory Improvement Amendments (CLIA) as qualified to perform high complexity clinical laboratory testing. This case has been personally reviewed and interpreted by the attending (teaching) pathologist. 09/28/2017 2:33 PM CDT [facility] Embedded Images 09/28/2017 2:33 PM CDT [facility] Biopsy, NOS COLON PART / Unknown 09/27/2017 11:35 AM CDT 09/27/2017 3:29 PM CDT Biopsy, NOS (Large Intestine, Sigmoid Colon) 09/27/2017 11:36 AM CDT 09/27/2017 3:29 PM CDT Biopsy, NOS (Large Intestine, Sigmoid Colon) 09/27/2017 11:36 AM CDT 09/27/2017 3:29 PM CDT Seema Mason MD LAB - PATHOLOGY/CY TOLOGY ORDERABLES Performing Organization Address [facility] Co de Phone Number [facility] [address] [phone] * ABO TYPE: RETYPE-PATIENT RESULT ONLY (09/27/2017 9:04 AM CDT) ABO 09/27/2017 11:00 AM CDT [facility] Rh Type 09/27/2017 11:00 AM CDT [facility] Typem 09/27/2017 11:00 AM CDT [facility] Interpretation 09/27/2017 11:00 AM CDT [facility] Blood BLOOD SPECIMEN / Unknown Lab Venipuncture / Unknown 09/27/2017 9:04 AM CDT 09/27/2017 9:26 AM CDT Narrative [facility] - 09/27/2017 11:00 AM CDT Re-type confirmed per [facility] Blood Bank policies & procedures. Results documented in department. Vimal Shaffer DO LAB - BLOOD BANK OR DERABLES [facility] [address] * TYPE + SCREEN PANEL (09/27/2017 8:27 AM CDT) Antibody Screen NEG 8 9:26 AM CDT [facility] ABO Rh B POS 09/27/2017 9:26 AM T [facility] Blood Bank BLOOD SPECIMEN / Unknown Venipuncture / Unknown 09/27/2017 8:27 AM CDT 09/27/2017 8:37 AM CDT Vimal Shaffer DO LAB - BLOOD BANK OR DERABLES Performing Organization Address City/State/[facility] Co de Phone Number [facility] [address] * CBC W/O DIFFERENTIAL (09/27/2017 8:27 AM CDT) WBC 7.3 3.5 - 10.5 10? 3 /uL 09/27/2017 8:36 AM [facility] RBC 4.44 3.90 - 5.00 10? 6 /uL 09/27/2017 8:36 AM [facility] Hemoglobin 13.3 12.0 - 15.5 g/dL 09/27/2017 8:36 AM [facility] Hematocrit 39.1 35.0 - 45.0 % 09/27/2017 8:36 AM [facility] MCV 88.1 81.0 - 97.0 fL 09/27/2017 8:36 AM [facility] MCH 30.0 28.0 - 34.0 pg 09/27/2017 8:36 AM [facility] MCHC 34.0 32.0 - 36.0 g/dL 09/27/2017 8:36 AM [facility] Platelet Count 229 150 - 400 10? 3 /uL 09/27/2017 8:36 AM [facility] RDW-SD 39.7 36.0 - 50.0 fL 09/27/2017 8:36 AM [facility] RDW-CV 12.4 11.2 - 14.8 % 09/27/2017 8:36 AM [facility] MPV 10.3 9.3 - 12.8 fL 09/27/2017 8:36 AM [facility] Blood BLOOD SPECIMEN / Unknown Venipuncture / Unknown 09/27/2017 8:27 AM CDT 09/27/2017 8:32 AM CDT Chris Herron DO LAB - HEMATOLOGY ORD ERABLES [facility] [address] [place] [address], [facility] [phone] * (ABNORMAL) CREATININE BLOOD - POCT (IP) [facility] (09/21/2017 9:34 AM CDT) Creatinine POCT 1.09 0.3 - 1.3 mg/dL [facility] POCT TESTING eGFR POCT 56(A) 60 ml/min [facility] POCT TESTING Blood BLOOD SPECIMEN / Unknown 09/21/2017 9:34 AM CDT Kerry Palomares MD LAB - POINT OF CARE ORDERABLES [facility] POCT TESTING [address] [place] [address], [facility] [phone] * STREP A SCREEN - POINT OF CARE (AMB) STL (03/23/2017) Strep A Rapid POCT Negative Negative Strep A Internal Control Present Lot # [id number] Expiration Date [id number] Throat ENTIRE THROAT (SURFACE REGION OF NECK) / Unknown 03/23/2017 Callie John PLANNING SPECIALIST-COMMAND AND CONTROL SPECIALIST LAB - POINT O F CARE ORDERABLES Care Teams Hospice Clinical Marketer Relationship Specialty Start Date End Date Wil Araya MD [address] [place] [address] PCP - General Family Medicine 03/23/17 Janie Gallegos LMSW 10/07/17
--- OUTSIDE RECORDS SUMMARY | 2024-04-06 08:46 | XMS_ITS | Encounter Summary ---
Author Organization [facility] Healthcare Address [address] [place] [address] Care Team Providers Care Project Buyer Name Role Phone Wil Araya MD Primary Care Provider Reason for Visit * Diagnostic Imaging (Routine) - Closed Specialty Diagnoses / Procedures Referred By Arun t Referred To Contact Procedures Breast Imaging Screening Outside Reference Delmy [place] NP Phone: tel: fax: Referral ID Status Reason Start Date Expiration Date Visits Re quested Visits Authorized [id number] Closed 07/23/2021 08/22/2022 1 1 Encounter Details Date Type Department Care Team (Late st Contact Info) Description 04/29/2018 Hospital Encounter [facility] [address] [place] [address] Social History Tobacco Use Types Packs/Day Years [...] often do you attend chur ch or lutheran services? Never 12/21/2022 Do you belong to any clubs o r organizations such as quaker groups, unions, fraternal or athletic groups, or [...] place to sleep or slept in a [place] (including now)? No 12/21/2022 Personal Safety Answer [...] on file Legal Sex Female 11:43 AM DURABLE MEDICAL EQUIPMENT TECHNICIAN Gender Identity Not on file Sexual Orientation Not on file documented as of this encounter Plan of Treatment Not on file documented as of this encounter Procedures Procedure Name Priority Date/Time Associated Diagnosis Comments BREAST IMAGING MG SCREENING OUTSIDE REFERENCE Routine 04/29/2018 12:00 AM DURABLE MEDICAL EQUIPMENT TECHNICIAN documented in this encounter Results * Breast Imaging Screening Outside Reference (04/29/2018 12:00 AM DURABLE MEDICAL EQUIPMENT TECHNICIAN) Impressions [facility] - 07/23/2021 12:17 PM CDT These images are for Reference purposes only and have not been reviewed by [facility] Radiology. ??There will be no report generated by a [facility] Radiologist. Narrative [facility] - 07/23/2021 12:17 PM CDT EXAMINATION: ??Images For Reference Purposes Only us Delmy [place] PERSONAL HEALTH COACH IMG MAMMO PROCEDURES Fin al Result [facility] [...] documented as of this encounter Care Teams Project Buyer Relationship Specialty Start Date End Date Wil Araya MD [address] [facility] [address] [place] [address] PCP - General 10/07/15 documented as of this encounter
--- OUTSIDE RECORDS SUMMARY | 2024-04-06 08:46 | XMS_ITS | Referral Summary ---
Author Organization [facility] Address [address] [place] [address] Care Team Providers Care Campaign Developer Name Role Phone Wil Araya MD Primary Care Provider [phone] Janie Gallegos [facility] [place] [phone] Source Comments [facility],non-owned Affiliates and Associated Physician Practices is amultiple site organization consisting of ambulatory clinics and hospital sitesin [place], [place], [place] and [place]. This disclosure is being madepursuant to the Care Everywhere program and may not contain all information available regarding this patient. Last updated 17.[facility] Allergies No known active allergies Medications * [...] Administration Dates Next Due INFLUENZA VACCINE 12/13/2017 Social History Tobacco Use Types Packs/Day Years [...] Comments Blood Pressure 139/80 05/10/2018 9:21 AM PALLIATIVE CARE NURSE PRACTITIONER Pulse 84 05/10/2018 9:21 AM PALLIATIVE CARE NURSE PRACTITIONER Temperature 36.7 ??C (98 ??F) 02/23/2018 12:50 PM PALLIATIVE CARE NURSE PRACTITIONER Respiratory Rate 16 01/24/2018 3:51 PM PALLIATIVE CARE NURSE PRACTITIONER Oxygen Saturation 99% 05/10/2018 9:21 AM PALLIATIVE CARE NURSE PRACTITIONER Inhaled Oxygen Concentration 40% 09/27/2017 2 :20 PM CDT Weight 80.3 kg (177 lb) 05/10/2018 9:21 AM PALLIATIVE CARE NURSE PRACTITIONER Height 152.4 cm (5') 05/10/2018 9:21 AM PALLIATIVE CARE NURSE PRACTITIONER Body Mass Index 34.57 05/10/2018 9:21 AM PALLIATIVE CARE NURSE PRACTITIONER Functional Status Functional Status Response Date of Assess ment Is person deaf or have serious hearing difficult y? No 10/06/2017 Is person blind or have serious difficulty seein g? No 10/06/2017 Does person have serious dif ficulty walking/climbing stairs? No 10/06/2017 Does person have difficulty dressing/bathing? No 10/06/2017 Does person have difficulty doing errands alone? No 10/06/2017 Cognitive Status Response Date of Assessm ent Does person have difficulty concentrating/remembering/making decisions? No 10/06/2017 Plan of Treatment Not on file Medical Devices Implanted Type Area Banquet Houseperson Device Identifier Shelf Expiration Date Model / Serial / Lot Mesh Srg Ventralight St Sepra 8x6in Implanted:Qty: 1 on 01/24/2018 by Wil Cleaning MD at [facility] [employer] 10/10/2019 [id number] / / [id number] Procedures Procedure Name Priority Date/Time Associated Diagnosis Comments BASIC METABOLIC PANEL (CALCIUM TOTAL) STAT 10/07/2017 8:51 AM CDT from Last 3 Months or Most Recently Relevant to Health Maintenance Results * (ABNORMAL) BASIC METABOLIC PANEL (CALCIUM TOTAL) (10/07/2017 8:51 AM CDT) BUN 5(L) 7 - 26 mg/dL 10/07/2017 9:13 AM [facility] Creatinine 0.7 0.6 - 1.2 mg/dL 10/07/2017 9:13 AM [facility] Sodium 140 136 - 145 mmol/L 10/07/2017 9:13 AM [facility] Potassium 3.5 3.5 - 4.5 mmol/L 10/07/2017 9:13 AM [facility] Chloride 105 98 - 107 mmol/L 10/07/2017 9:13 AM [facility] CO2 25 22 - 29 mmol/L 10/07/2017 9:13 AM [facility] Glucose 136(H) 70 - 115 mg/dL 10/07/2017 9:13 AM [facility] Calcium 8.6 8.4 - 10.2 mg/dL 10/07/2017 9:13 AM [facility] Anion Gap 14 8 - 18 10/07/2017 9:13 AM [facility] BUN/Creatinine Ratio 7 7 - 23 10/07/2017 9:13 AM [facility] Osmolality Calculated 289 270 - 300 mOsm/kg 10/07/2017 9:13 AM [facility] eGFR >60 >60 mL/min/1.7 3 m2 10/07/2017 9:13 AM [facility] Blood BLOOD SPECIMEN / Unknown Venipuncture / Unknown 10/07/2017 8:51 AM CDT 10/07/2017 8:54 AM CDT Melecio Awad DO LAB - CHEMISTRY AUBREE BANUELOS [address] [phone] from Last 3 Months or Most Recently [...] 7:49 AM 09/27/2017 6:07 PM Care Teams Campaign Developer Relationship Specialty Start Date End Date Wil Araya MD [address] [place] [address] PCP - General Family Medicine 03/23/17 Janie Gallegos BETTING AGENCY COUNTER CLERK 10/07/17
--- OUTSIDE RECORDS SUMMARY | 2024-04-06 08:46 | XMS_ITS | Encounter Summary ---
Author Organization [facility] Healthcare Address [address] [place] [address] Care Team Providers Care Pediatric Medical Assistant Name Role Phone Wil Araya MD Primary Care Provider Reason for Visit * Diagnostic Imaging (Routine) - Closed Specialty Diagnoses / Procedures Referred By Arun t Referred To Contact Procedures Breast Imaging Screening Outside Reference Delmy [place] NP Phone: tel: fax: Referral ID Status Reason Start Date Expiration Date Visits Re quested Visits Authorized [id number] Closed 07/23/2021 08/22/2022 1 1 Encounter Details Date Type Department Care Team (Late st Contact Info) Description 02/24/2017 Hospital Encounter [facility] [address] [place] [address] Social History Tobacco Use Types Packs/Day Years [...] often do you attend chur ch or episcopalian services? Never 12/21/2022 Do you belong to any clubs o r organizations such as methodist groups, unions, fraternal or athletic groups, or [...] place to sleep or slept in a senior living (including now)? No 12/21/2022 Personal Safety Answer [...] on file Legal Sex Female 11:43 AM REHABILITATION SERVICES COUNSELOR Gender Identity Not on file Sexual Orientation Not on file documented as of this encounter Plan of Treatment Not on file documented as of this encounter Procedures Procedure Name Priority Date/Time Associated Diagnosis Comments BREAST IMAGING MG SCREENING OUTSIDE REFERENCE Routine 02/24/2017 12:00 AM REHABILITATION SERVICES COUNSELOR documented in this encounter Results * Breast Imaging Screening Outside Reference (02/24/2017 12:00 AM REHABILITATION SERVICES COUNSELOR) Impressions [facility] - 07/23/2021 12:26 PM CDT These images are for Reference purposes only and have not been reviewed by [facility] Radiology. ??There will be no report generated by a [facility] Radiologist. Narrative [facility] - 07/23/2021 12:26 PM CDT EXAMINATION: ??Images For Reference Purposes Only us Delmy [place] INFECTION CONTROL COORDINATOR IMG MAMMO PROCEDURES Fin al Result [facility] [...] documented as of this encounter Care Teams Pediatric Medical Assistant Relationship Specialty Start Date End Date Wil Araya MD [address] [place] [address] PCP - General 10/07/15 documented as of this encounter
--- OUTSIDE RECORDS SUMMARY | 2024-04-06 08:46 | XMS_ITS | Data Portability ---
Author Organization [facility] Address [address] [place] [address] Care Team Providers Care Motion Picture Cameraman Name Role Phone CARMEN AMBROCIO Primary Care Provider Assessment Encounter Date Assessment Date Assessment LastModified by Organization Details LastModified Time 01/09/2021 01/09/2021 Annual gynecological exam performed. Patient will come back in a year unless there are new symptoms. Not available 01/07/2021 12:38:00 07/20/2022 07/20/2022 Annual gynecological exam performed. Patient will come back in a year unless there are new symptoms. Not available 07/20/2022 09:35:27 04/28/2023 04/28/2023 Annual gynecological exam performed. Patient will come back in a year unless there are new symptoms. Not available 04/28/2023 09:28:23 Plan of Treatment Reminders Order Date Submit Date Provider Last Modified By Organization Details Last Modified Time Details Appointments [facility] 2024 08:00A Otoniel CHRISTENSEN NP Not available Not available Not available Lab vitamin D, 25-hydrox y, total, serum [address] (Lab), [address], [place], [address], 01/27/2021 15:30:08 CBC w/ auto diff [address] (Lab), [address] [place], [address], 01/27/2021 15:30:08 phosphoru s, serum or plasma [address] (Lab), [address], [place], [address], 01/27/2021 15:30:09 CMP, serum or plasma [address] (Lab), [address], [place], [address], 01/27/2021 15:30:09 Referral None recorded. Procedures None recorded. Surgeries None recorded. Imaging DEXA, axial skeleton + vertebral fracture assessmen t [address], [address], [place], [address], 07/08/2021 16:33:05 MAMMO, screening , bilateral 2022 023 [facility], [address], [place], [address], 09/30/2022 09:32:36 MAMMO, screening , bilateral [id number] [place] [address], [address], [place], [address], 09/07/2023 15:23:03 Medication Orders None recorded. Patient TargetsNo targets recorded. Patient InstructionsNo instructions recorded. Reason for Referral None Reported. Results Created Date Observation Date Name Description Value Unit Range Abnormal Flag Note LastModifiedBy Organization Detail LastModifiedTime 03/13/20 21 03/13/2021 CBC W/DIF F WBC 7.0 10'3/ uL 3.6-10 .2 Not Available [facility] (Lab) [address], [place], [address], 03/14/2021 02:27:41 03/13/20 21 03/13/2021 CBC W/DIF F RBC 4.00 10'6/ uL (based on docume nted legal sex) 4.10-5 .30 low Not Available [facility] (Lab) [address], [place], [address], 03/14/2021 02:27:41 03/13/20 21 03/13/2021 CBC W/DIF F HGB 12.8 g/dL (based on docume nted legal sex) 11.9-1 5.8 Not Available [facility] (Lab) [address], [place], [address], 03/14/2021 02:27:41 03/13/20 21 03/13/2021 CBC W/DIF F HCT 37.2 % (based on docume nted legal sex) 37.4-4 8.3 low Not Available [facility] (Lab) [address], [place], [address], 03/14/2021 02:27:41 03/13/20 21 03/13/2021 CBC W/DIF F MCV 93.0 fL 82.0-9 9.0 Not Available [facility] (Lab) [address], [place], [address], 03/14/2021 02:27:41 03/13/20 21 03/13/2021 CBC W/DIF F MCH 32.0 pg 27.0-3 3.0 Not Available [facility] (Lab) [address] [place], [address], 03/14/2021 02:27:41 03/13/20 21 03/13/2021 CBC W/DIF F MCHC 34.0 g/dL 32.0-3 6.0 Not Available [facility] (Lab) [address] [place], [address], 03/14/2021 02:27:41 03/13/20 21 03/13/2021 CBC W/DIF F RDW 12.0 % 11.0-1 5.0 Not Available [facility] (Lab) [address] [place], [address], 03/14/2021 02:27:41 03/13/20 21 03/13/2021 CBC W/DIF F plt 241 10'3/ uL 150-45 0 Not Available [facility] (Lab) [address] [facility], [place], [address], 03/14/2021 02:27:41 03/13/20 21 03/13/2021 CBC W/DIF F MPV 11.4 fL 9.8-12 .7 Not Available [facility] (Lab) [address] [facility], [place], [address], 03/14/2021 02:27:41 03/13/20 21 03/13/2021 CBC W/DIF F NRBC's 0.00 % 0 Not Available [facility] (Lab) [address] [facility], [place], [address], 03/14/2021 02:27:41 03/13/20 21 03/13/2021 CBC W/DIF F absolute NRBCs 0.0 10'3/ uL 0 Not Available [facility] (Lab) [address] [facility], [place], [address], 03/14/2021 02:27:41 03/13/20 21 03/13/2021 CBC W/DIF F neutrophils 56.0 % 37.0-7 2.0 Not Available [facility] (Lab) [address] [facility], [place], [address], 03/14/2021 02:27:41 03/13/20 21 03/13/2021 CBC W/DIF F lymphocytes 36.0 % 16.0-4 8.0 Not Available [facility] (Lab) [address] [facility], [place], [address], 03/14/2021 02:27:41 03/13/20 21 03/13/2021 CBC W/DIF F monocytes 7.0 % 4.0-14 .0 Not Available [facility] (Lab) [address] [facility], [place], [address], 03/14/2021 02:27:41 03/13/20 21 03/13/2021 CBC W/DIF F eosinophils 1.0 % 0.0-9. 0 Not Available [facility] (Lab) [address] [facility], [place], [address], 03/14/2021 02:27:41 03/13/20 21 03/13/2021 CBC W/DIF F basophils 0.0 % 0.0-2. 0 Not Available [facility] (Lab) [address] [facility], [place], [address], 03/14/2021 02:27:41 03/13/20 21 03/13/2021 CBC W/DIF F immature granulocytes 0.0 % no define d refere nce range Not Available [facility] (Lab) [address] [facility], [place], [address], 03/14/2021 02:27:41 03/13/20 21 03/13/2021 CBC W/DIF F absolute neutrophils 3.9 10'3/ uL 1.1-6. 0 Not Available [facility] (Lab) [address] [facility], [place], [address], 03/14/2021 02:27:41 03/13/20 21 03/13/2021 CBC W/DIF F absolute lymphocytes 2.5 10'3/ uL 0.7-3. 4 Not Available [facility] (Lab) [address] [facility], [place], [address], 03/14/2021 02:27:41 03/13/20 21 03/13/2021 CBC W/DIF F absolute monocytes 0.5 10'3/ uL 0.3-1. 0 Not Available [facility] (Lab) [address] [facility], [place], [address], 03/14/2021 02:27:41 03/13/20 21 03/13/2021 CBC W/DIF F absolute eosinophils 0.1 10'3/ uL 0.0-0. 6 Not Available [facility] (Lab) [address] [facility], [place], [address], 03/14/2021 02:27:41 03/13/20 21 03/13/2021 CBC W/DIF F absolute basophils 0.0 10'3/ uL 0.0-0. 1 Not Available [facility] (Lab) [address] [facility], [place], [address], 03/14/2021 02:27:41 03/13/20 21 03/13/2021 CBC W/DIF F absolute immature granulocytes 0.00 10'3/ uL 0.00-0 .10 03/14 12:36 AM: P indic ates parti al resul ts on a panel have been relea sed. Addit ional resul ts will follo w. 03/14 12:36 AM: This resul t has been final verif ied. No addit ional or rothman ed resul ts are expec doe. Not Available [facility] (Lab) [address] [facility], [place], [address], 03/14/2021 02:27:41 03/13/20 21 03/13/2021 PHOSP HORUS phosphorus 3.8 mg/dL 2.5-5. 0 Not Available [facility] (Lab) [address] [facility], [place], [address], 03/14/2021 02:27:42 03/13/20 21 03/13/2021 CMP(C OMPRE HENSI VE METAB OLIC PANEL ) sodium 140 mmol/ L 133-14 6 Not Available [facility] (Lab) [address] [facility], [place], [address], 03/14/2021 02:27:43 03/13/20 21 03/13/2021 CMP(C OMPRE HENSI VE METAB OLIC PANEL ) potassium 3.9 mmol/ L 3.5-5. 1 Not Available [facility] (Lab) [address] [facility], [place], [address], 03/14/2021 02:27:43 03/13/20 21 03/13/2021 CMP(C OMPRE HENSI VE METAB OLIC PANEL ) chloride 103 mmol/ L 98-107 Not Available [facility] (Lab) [address] [facility], [place], [address], 03/14/2021 02:27:43 03/13/20 21 03/13/2021 CMP(C OMPRE HENSI VE METAB OLIC PANEL ) carbon dioxide 26 mmol/ L 21- Not Available [facility] (Lab) [address] [facility], [place], [address], 03/14/2021 02:27:43 03/13/20 21 03/13/2021 CMP(C OMPRE HENSI VE METAB OLIC PANEL ) anion gap 11 mmol/ L 4-13 Not Available [facility] (Lab) [address] [facility], [place], [address], 03/14/2021 02:27:43 03/13/20 21 03/13/2021 CMP(C OMPRE HENSI VE METAB OLIC PANEL ) blood urea nitrogen 16 mg/dL 7-25 Not Available [facility] (Lab) [address] [facility], [place], [address], 03/14/2021 02:27:43 03/13/20 21 03/13/2021 CMP(C OMPRE HENSI VE METAB OLIC PANEL ) creatinine 0.87 mg/dL 0.60-1 .30 Not Available [facility] (Lab) [address] [facility], [place], [address], 03/14/2021 02:27:43 03/13/20 21 03/13/2021 CMP(C OMPRE HENSI VE METAB OLIC PANEL ) egfrcr (CKD-epi 2020) 79 mL/mi n/1.7 3_m2 >=60 Not Available [facility] (Lab) [address], [place], [address], 03/14/2021 02:27:43 03/13/20 21 03/13/2021 CMP(C OMPRE HENSI VE METAB OLIC PANEL ) calcium 10.1 mg/dL 8.3-10 .5 Not Available [facility] (Lab) [address] [facility], [place], [address], 03/14/2021 02:27:43 03/13/20 21 03/13/2021 CMP(C OMPRE HENSI VE METAB OLIC PANEL ) glucose 127 mg/dL 70-100 high Not Available [facility] (Lab) [address] [facility], [place], [address], 03/14/2021 02:27:43 03/13/20 21 03/13/2021 CMP(C OMPRE HENSI VE METAB OLIC PANEL ) protein, total 8.0 g/dL 6.4-8. 3 Not Available [facility] (Lab) [address] [facility], [place], [address], 03/14/2021 02:27:43 03/13/20 21 03/13/2021 CMP(C OMPRE HENSI VE METAB OLIC PANEL ) albumin 5.0 g/dL 3.5-5. 0 Not Available [facility] (Lab) [address] [facility], [place], [address], 03/14/2021 02:27:43 03/13/20 21 03/13/2021 CMP(C OMPRE HENSI VE METAB OLIC PANEL ) ALT 25 units /L 9-43 Not Available [facility] (Lab) [address] [facility], [place], [address], 03/14/2021 02:27:43 03/13/20 21 03/13/2021 CMP(C OMPRE HENSI VE METAB OLIC PANEL ) alkaline phosphatase 69 units /L 34-104 Not Available [facility] (Lab) [address] [facility], [place], [address], 03/14/2021 02:27:43 03/13/20 21 03/13/2021 CMP(C OMPRE HENSI VE METAB OLIC PANEL ) AST 19 units /L 13-39 Not Available [facility] (Lab) [address], [place], [address], 03/14/2021 02:27:43 03/13/20 21 03/13/2021 CMP(C OMPRE HENSI VE METAB OLIC PANEL ) bilirubin, total 0.4 mg/dL 0.2-1. 2 Not Available [facility] (Lab) [address], [place], [address], 03/14/2021 02:27:43 03/13/20 21 03/13/2021 VITAM IN D, 25-OH (TOTA L D2/D3 ) vitamin D, 25-hydroxy, total 47.0 NG/mL 30-80 NOTE: Defic iency : <20 ng/mL Insuf ficie ncy: 20-29 ng/mL Optim um Level : 30-80 ng/mL Possi ble Toxic ity: >80 ng/mL Most patie nts with toxic ity have level s >150 ng/mL . Not Available [facility] (Lab) [address], [place], [address], 03/14/2021 02:27:43 05/04/19 23 05/04/2022 CBC W/DIF F WBC 3.6 10'3/ uL 3.6-10 .2 Not Available [facility] (Lab) [address], [place], [address], 05/05/2022 04:22:40 05/04/19 23 05/04/2022 CBC W/DIF F RBC 4.11 10'6/ uL (based on docume nted legal sex) 4.10-5 .30 Not Available [facility] (Lab) [address], [place], [address], 05/05/2022 04:22:40 05/04/19 23 05/04/2022 CBC W/DIF F HGB 13.4 g/dL (based on docume nted legal sex) 11.9-1 5.8 Not Available [facility] (Lab) [address], [place], [address], 05/05/2022 04:22:40 05/04/19 23 05/04/2022 CBC W/DIF F HCT 41.3 % (based on docume nted legal sex) 37.4-4 8.3 Not Available [facility] (Lab) [address], [place], [address], 05/05/2022 04:22:40 05/04/19 23 05/04/2022 CBC W/DIF F MCV 100.5 fL 82.0-9 9.0 high Not Available [facility] (Lab) [address], [place], [address], 05/05/2022 04:22:40 05/04/19 23 05/04/2022 CBC W/DIF F MCH 32.6 pg 27.0-3 3.0 Not Available [facility] (Lab) [address], [place], [address], 05/05/2022 04:22:40 05/04/19 23 05/04/2022 CBC W/DIF F MCHC 32.4 g/dL 32.0-3 6.0 Not Available [facility] (Lab) [address], [place], [address], 05/05/2022 04:22:40 05/04/19 23 05/04/2022 CBC W/DIF F RDW 12.4 % 11.0-1 5.0 Not Available [facility] (Lab) [address], [place], [address], 05/05/2022 04:22:40 05/04/19 23 05/04/2022 CBC W/DIF F plt 235 10'3/ uL 150-45 0 Not Available [facility] (Lab) [address] [place], [address], 05/05/2022 04:22:40 05/04/19 23 05/04/2022 CBC W/DIF F MPV 11.7 fL 9.8-12 .7 Not Available [facility] (Lab) [address], [place], [address], 05/05/2022 04:22:40 05/04/19 23 05/04/2022 CBC W/DIF F NRBC's 0.0 % 0 Not Available [facility] (Lab) [address], [place], [address], 05/05/2022 04:22:40 05/04/19 23 05/04/2022 CBC W/DIF F absolute NRBCs 0.0 10'3/ uL 0 Not Available [facility] (Lab) [address], [place], [address], 05/05/2022 04:22:40 05/04/19 23 05/04/2022 CBC W/DIF F neutrophils 51.8 % 37.0-7 2.0 Not Available [facility] (Lab) [address], [place], [address], 05/05/2022 04:22:40 05/04/19 23 05/04/2022 CBC W/DIF F lymphocytes 34.3 % 16.0-4 8.0 Not Available [facility] (Lab) [address], [place], [address], 05/05/2022 04:22:40 05/04/19 23 05/04/2022 CBC W/DIF F monocytes 10.4 % 4.0-14 .0 Not Available [facility] (Lab) [address], [place], [address], 05/05/2022 04:22:40 05/04/19 23 05/04/2022 CBC W/DIF F eosinophils 2.7 % 0.0-9. 0 Not Available [facility] (Lab) [address], [place], [address], 05/05/2022 04:22:40 05/04/19 23 05/04/2022 CBC W/DIF F basophils 0.5 % 0.0-2. 0 Not Available [facility] (Lab) [address] [facility], [place], [address], 05/05/2022 04:22:40 05/04/19 23 05/04/2022 CBC W/DIF F immature granulocytes 0.3 % no define d refere nce range Not Available [facility] (Lab) [address] [facility], [place], [address], 05/05/2022 04:22:40 05/04/19 23 05/04/2022 CBC W/DIF F absolute neutrophils 1.9 10'3/ uL 1.1-6. 0 Not Available [facility] (Lab) [address] [facility], [place], [address], 05/05/2022 04:22:40 05/04/19 23 05/04/2022 CBC W/DIF F absolute lymphocytes 1.3 10'3/ uL 0.7-3. 4 Not Available [facility] (Lab) [address] [facility], [place], [address], 05/05/2022 04:22:40 05/04/19 23 05/04/2022 CBC W/DIF F absolute monocytes 0.4 10'3/ uL 0.3-1. 0 Not Available [facility] (Lab) [address] [facility], [place], [address], 05/05/2022 04:22:40 05/04/19 23 05/04/2022 CBC W/DIF F absolute eosinophils 0.1 10'3/ uL 0.0-0. 6 Not Available [facility] (Lab) [address] [place], [address], 05/05/2022 04:22:40 05/04/19 23 05/04/2022 CBC W/DIF F absolute basophils 0.0 10'3/ uL 0.0-0. 1 Not Available [facility] (Lab) [address] [facility], [place], [address], 05/05/2022 04:22:40 05/04/19 23 05/04/2022 CBC W/DIF F absolute immature granulocytes 0.0 10'3/ uL 0.00-0 .10 2022 2:44 AM: P indic ates parti al resul ts on a panel have been relea sed. Addit ional resul ts will follo w. 2022 2:44 AM: This resul t has been final verif ied. No addit ional or rothman ed resul ts are expec doe. Not Available [facility] (Lab) [address] [facility], [place], [address], 05/05/2022 04:22:40 05/04/19 23 05/04/2022 PHOSP HORUS phosphorus 4.3 mg/dL 2.5-5. 0 Not Available [facility] (Lab) [address] [facility], [place], [address], 05/05/2022 04:22:40 05/04/19 23 05/04/2022 CMP(C OMPRE HENSI VE METAB OLIC PANEL ) sodium 139 mmol/ L 133-14 6 Not Available [facility] (Lab) [address] [facility], [place], [address], 05/05/2022 04:22:40 05/04/19 23 05/04/2022 CMP(C OMPRE HENSI VE METAB OLIC PANEL ) potassium 4.7 mmol/ L 3.5-5. 1 Not Available [facility] (Lab) [address] [facility], [place], [address], 05/05/2022 04:22:40 05/04/19 23 05/04/2022 CMP(C OMPRE HENSI VE METAB OLIC PANEL ) chloride 100 mmol/ L 98-107 Not Available [facility] (Lab) [address] [facility], [place], [address], 05/05/2022 04:22:40 05/04/19 23 05/04/2022 CMP(C OMPRE HENSI VE METAB OLIC PANEL ) carbon dioxide 29 mmol/ L 21-31 Not Available [facility] (Lab) [address] [facility], [place], [address], 05/05/2022 04:22:40 05/04/19 23 05/04/2022 CMP(C OMPRE HENSI VE METAB OLIC PANEL ) anion gap 10 mmol/ L 4-13 Not Available [facility] (Lab) [address], [place], [address], 05/05/2022 04:22:40 05/04/19 23 05/04/2022 CMP(C OMPRE HENSI VE METAB OLIC PANEL ) blood urea nitrogen 18 mg/dL 7-25 Not Available [facility] (Lab) [address], [place], [address], 05/05/2022 04:22:40 05/04/19 23 05/04/2022 CMP(C OMPRE HENSI VE METAB OLIC PANEL ) creatinine 1.06 mg/dL 0.60-1 .30 Not Available [facility] (Lab) [address] [facility], [place], [address], 05/05/2022 04:22:40 05/04/19 23 05/04/2022 CMP(C OMPRE HENSI VE METAB OLIC PANEL ) egfrcr (CKD-epi 2020) 62 mL/mi n/1.7 3_m2 >=60 Not Available [facility] (Lab) [address] [facility], [place], [address], 05/05/2022 04:22:40 05/04/19 23 05/04/2022 CMP(C OMPRE HENSI VE METAB OLIC PANEL ) calcium 9.8 mg/dL 8.3-10 .5 Not Available [facility] (Lab) [address], [place], [address], 05/05/2022 04:22:40 05/04/19 23 05/04/2022 CMP(C OMPRE HENSI VE METAB OLIC PANEL ) glucose 112 mg/dL 70-100 high Not Available [facility] (Lab) [address] [facility], [place], [address], 05/05/2022 04:22:40 05/04/19 23 05/04/2022 CMP(C OMPRE HENSI VE METAB OLIC PANEL ) protein, total 6.9 g/dL 6.4-8. 3 Not Available [facility] (Lab) [address] [facility], [place], [address], 05/05/2022 04:22:40 05/04/19 23 05/04/2022 CMP(C OMPRE HENSI VE METAB OLIC PANEL ) albumin 4.6 g/dL 3.5-5. 0 Not Available [facility] (Lab) [address] [facility], [place], [address], 05/05/2022 04:22:40 05/04/19 23 05/04/2022 CMP(C OMPRE HENSI VE METAB OLIC PANEL ) ALT 31 units /L 9-43 Not Available [facility] (Lab) [address] [facility], [place], [address], 05/05/2022 04:22:40 05/04/19 23 05/04/2022 CMP(C OMPRE HENSI VE METAB OLIC PANEL ) alkaline phosphatase 50 units /L 34-104 Not Available [facility] (Lab) [address] [facility], [place], [address], 05/05/2022 04:22:40 05/04/19 23 05/04/2022 CMP(C OMPRE HENSI VE METAB OLIC PANEL ) AST 31 units /L 13-39 Not Available [facility] (Lab) [address] [facility], [place], [address], 05/05/2022 04:22:40 05/04/19 23 05/04/2022 CMP(C OMPRE HENSI VE METAB OLIC PANEL ) bilirubin, total 0.8 mg/dL 0.2-1. 2 Not Available [facility] (Lab) [address] [facility], [place], [address], 05/05/2022 04:22:40 05/04/19 23 05/04/2022 CALCI UM, SERUM /PLAS MA calcium 9.8 mg/dL 8.3-10 .5 Not Available [facility] (Lab) [address] [facility], [place], [address], 05/05/2022 04:22:41 05/04/19 23 05/04/2022 VITAM IN D, 25-OH (TOTA L D2/D3 ) vitamin D, 25-hydroxy, total 32.0 NG/mL 30.0-1 00.0 [place] [address]ive of Defic iency : <20 ng/mL Sugge stive of Insuf ficie ncy: 20-29 ng/mL Sugge stive of Suffi cienc y: 30-10 0 ng/mL Sugge stive of Toxic ity: >150 ng/mL Not Available [facility] (Lab) [address] [facility], [place], [address], 05/05/2022 04:22:41 04/28/19 24 04/28/2023 CT/GC AND TRICH OMONA S VAGIN JOHANNE (RRNA ), SWAB chlamydia trachomatis, PCR Negati ve negati ve Not Available [facility] (Lab) [address] [facility], [place], [address], 04/29/2023 13:47:18 04/28/19 24 04/28/2023 CT/GC AND TRICH OMONA S VAGIN JOHANNE (RRNA ), SWAB neisseria gonorrhoeae, PCR Negati ve negati ve Not Available [facility] (Lab) [address] [facility], [place], [address], 04/29/2023 13:47:18 04/28/19 24 04/28/2023 CT/GC AND TRICH OMONA S VAGIN JOHANNE (RRNA ), SWAB trichomonas vaginalis ribosomal RNA (rrna) Negati ve negati ve Not Available [facility] (Lab) [address] [facility], [place], [address], 04/29/2023 13:47:18 05/21/19 22 05/19/2021 MAMMO , scree marla, bilat eral No observ ation record ed. [email or web address] [facility] [address], [place], [address], 05/20/2021 14:04:39 05/21/19 22 05/19/2021 MAMMO , scree maral, bilat eral No observ ation record ed. [email or web address] [facility] [address], [place], [address], 05/20/2021 12:31:07 06/04/19 22 06/03/2021 MAMMO , diagn ostic , digit al, bilat eral No observ ation record ed. [email or web address] [facility] [address], [place], [address], 06/10/2021 11:29:02 10/01/19 23 09/29/2022 MAMMO , scree marla, bilat eral No observ ation record ed. [email or web address] [facility] [address], [place], [address], 04/28/2023 09:36:24 10/04/19 24 10/04/2023 MAMMO , scree marla, bilat eral No observ ation record ed. SALLY [facility] [address], [place], [address], 10/06/2023 09:03:12 Result Notes None recorded. Problems Name Problem SNOMED Code Status Onset Date Resolution Date Notes Provider Name and Address Organization Details Recorded Time Screenin g for malignan t neoplasm of rectum Completed 201401/07/2021 Screening for malignant neoplasms of the rectum;Pr actice ID: [id number] Tatyana Mccormick [facility] 12:22:09 Screenin g for malignan t neoplasm of cervix Completed 201401/07/2021 SCREEN MAL NEOP-CERV IX;Practi ce ID: [id number] [facility] 12:22:06 Speciali zed medical examinat ion Completed 201401/07/2021 Routine gynecolog ical examinati on;Practi ce ID: [id number] Tatyana Mccormick [facility] 12:22:13 Adult health examinat ion Completed 201401/07/2021 Routine general medical examinati on at a health care facility; Practice ID: [id number] [facility] 12:21:[address] Concept Completed 201801/07/2021 Encntr for general adult medical exam w/o abnormal findings; Recorded Elsewhere : No Locati on: [facility] So urce: EHR Chron ic: N Practic e ID: [id number] Bill able Time: 08:30:00 AM Tatyana Mccormick [facility] 12:22:10 Herpes simplex [id number] Completed 201601/07/2021 Herpes simplex infection ;Recorded Elsewhere : No Locati on: [facility] So urce: EHR Chron ic: N Practic e ID: [id number] Bill able Time: 10:30:00 AM Tatyana Mccormick [facility] 12:21:[address] Concept Completed 201901/07/2021 Encntr for manager of financial planning exam (general) (routine) w/o abn findings; Recorded Elsewhere : No Locati on: [facility] So urce: EHR Chron ic: N Practic e ID: [id number] Bill able Time: 08:30:00 AM Tatyana Mccormick [facility] 12:22:12 Screenin g for malignan t neoplasm of colon Completed 201001/07/2021 Special screening for malignant neoplasms , colon;Pra ctice ID: [id number] [facility] 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 12:22:02 Eruption [id number] Completed 201501/07/2021 Rash and other nonspecif ic skin eruption; Practice ID: [id number] [facility] 12:21:[address] Concept Completed 201801/07/2021 Encounter for general adult medical exam w abnormal findings; Practice ID: [id number] [facility] [facility] 12:22:03 Blood leukocyt e number above referenc e range [id number] Completed 201801/07/2021 Elevated white blood cell count, unspecifi ed;Practi ce ID: [id number] [facility] 12:22:00 Problem Notes None recorded. Procedures Surgical History Date Name Laterality Status Provider Name and Address Organization Details Recorded Time 07/14/19 22 Date of Last Mammogram completed Parisa Montenegro [facility] 07/20/2022 09:38:45 03/15/19 18 partial resection of colon completed [facility] 01/07/2021 12:30:28 03/15/19 18 Hernia repair w/mesh completed [facility] 01/07/2021 12:30:40 05/04/19 17 completed [facility] 01/09/2021 14:07:23 03/15/19 17 Date of Last Colonoscopy completed Parisa Montenegro [facility] 07/20/2022 09:39:23 03/15/19 17 Colonoscopy completed [facility] 01/07/2021 12:29:13 03/15/19 14 excision of skin completed [facility] 01/07/2021 12:29:01 03/15/19 13 excision of lesion of skin completed [facility] 01/07/2021 12:28:26 03/15/19 12 extraction of cataract completed [facility] 01/07/2021 12:27:46 02/13/20 07 procedure on foot completed [facility] 01/07/2021 12:26:34 10/14/19 07 procedure on foot completed [facility] 01/07/2021 12:26:29 03/15/19 03 [facility] 01/07/2021 12:27:30 03/15/19 02 Tonsillectomy completed [facility] 01/07/2021 12:27:18 03/15/18 99 Hysteroscopy completed [facility] 01/07/2021 12:27:08 03/15/18 98 Dilation and Curettage completed [facility] 01/07/2021 12:26:59 03/15/18 91 Tubal Ligation [facility] 01/07/2021 12:26:44 03/15/18 90 section completed [facility] 01/07/2021 12:26:09 03/15/18 87 section completed Tatyana Mccormick [facility] 01/07/2021 12:26:05 Imaging Results Imaging Date Name Status LastModified by Organiz ation Details LastModified Time 05/19/2021 MAMMO, screening, bilateral completed [email or web address] [facility] [address], [place], [address], 05/20/2021 14:04:39 05/19/2021 MAMMO, screening, bilateral completed layran [facility] [address], [place], [address], 05/20/2021 12:31:07 06/03/2021 MAMMO, diagnostic, digital, bilateral completed [email or web address] [facility] [address], [place], [address], 06/10/2021 11:29:02 09/29/2022 MAMMO, screening, bilateral completed [email or web address] [facility] [address], [place], [address], 04/28/2023 09:36:24 10/04/2023 MAMMO, screening, bilateral completed SALLY [facility] [address], [place], [address], 10/06/2023 09:03:12 Procedure Notes None recorded. Medical Equipment None Reported. Allergies Allergen ID Allergen Name Allergen Category Reaction Reaction Severity Criticality Documentation Date Start Date Code Code System Note Provider Name and Address Organization Details Recorded Time 86474 risedrona te sodium medicatio n Not available Not available Not available 03/01/2020 03657 RxNorm Comme nt: [facility] Agent : Ilana el; Not Available [employer] 14:14:50 Medications Name Sig Start Date Stop Date Status Note LastModified by Organization Details LastModified Time celecoxib 200 mg capsule TAKE 1 CAPSULE (200 MG) BY MOUTH TWICE A DAY NEEDED 07/20 completed Not Available Not Available Not Available doxycycli ne hyclate 100 mg capsule 04/28 completed Not Available Not Available Not Available tizanidin e 2 mg tablet TAKE 1 TO 2 TABLETS BY MOUTH EVERY DAY AT BEDTIME 01/17 completed Not Available Not Available Not Available azithromy katty 250 mg tablet TAKE 2 TABLETS BY MOUTH TODAY, THEN TAKE 1 TABLET DAILY FOR 4 DAYS 07/20 completed Not Available Not Available Not Available tizanidin e 4 mg tablet 11/20 completed Prescrib ed Elsewher e: No Locat ion: [facility] odify By: valery garciasunter DateTime : 11/10/19 13 08:15:00 AM Not Available Not Available Not Available valacyclo vir 1 gram tablet TAKE 2 TABLETS BY MOUTH NEEDED FOR COLD SORE. REPEAT AFTER 12 HOURS active Not Available Not Available No t Available Lotrisone 1 %-0.05 % topical cream apply by topical route 2 times every day for 2 weeks to the affected and surround ing areas of skin in the morning and evening 02/09 completed Prescrib ed Elsewher e: No Locat ion: [facility] odify By: edgar tz Encou nter DateTime : 01/28/20 16 08:30:00 AM Not Available Not Available Not Available ondansetr on HCl 4 mg tablet TAKE 1 TABLET BY MOUTH EVERY 8 HOURS NEEDED FOR NAUSEA OR VOMITING 07/20 completed Not Available Not Available Not Available prednison e 5 mg tablet TAKE 2 TABLETS BY MOUTH EVERY DAY 04/28 completed Not Available Not Available Not Available sulfasala zine 500 mg tablet,de layed release TAKE 1-2 TABLETS BY ORAL ROUTE 2 TIMES A DAY FOR 30 DAYS 07/20 completed Not Available Not Available Not Available azathiopr ine 50 mg tablet TAKE 2 TABLETS BY MOUTH ONCE DAILY FOR 30 DAYS active Not Available Not Available No t Available amlodipin e 5 mg tablet TAKE 1 TABLET BY MOUTH EVERY DAY active Not Available Not Available No t Available acyclovir 400 mg tablet take 1 tablet by oral route 2 times every day 01/09 completed Prescrib ed Elsewher e: No Locat ion: [facility] odify By: bchappheraclio orozco DateTime : 05/20/19 18 12:20:34 PM Not Available Not Available Not Available ciproflox acin 500 mg tablet TAKE 1 TABLET BY MOUTH WARP TRUCKER BEFORE BREAKFAS T FOR 10 DAYS 04/28 completed Not Available Not Available Not Available tramadol 50 mg tablet TAKE 1 TABLET BY MOUTH EVERY 6 HOURS NEEDED active Not Available Not Available No t Available triamcino lone acetonide 0.1 % topical cream APPLY TOPICALL Y TO THE AFFECTED AREA TWICE DAILY 01/17 completed Not Available Not Available Not Available levothyro xine 100 mcg tablet TK 1 T PO D 01/07 completed Not Available Not Available Not Available Metrogel Vaginal 0.75 % (37.5 mg/5 gram) insert 1 applicat orful (37.5MG) by vaginal route every day at bedtime 11/04 completed Prescrib ed Elsewher e: No Locat ion: [facility] odify By: kami orozco DateTime : 11/13/19 11 01:02:51 PM Not Available Not Available Not Available amitripty line 25 mg tablet TAKE 1-2 TABLETS BY MOUTH AT BEDTIME active Not Available Not Available No t Available Synthroid 25 mcg tablet active Not Available Not Available Not Available meclizine 25 mg tablet TAKE 1 TABLET BY MOUTH THREE TIMES DAILY NEEDED FOR DIZZINES S 07/20 completed Not Available Not Available Not Available baclofen 10 mg tablet TAKE 1 TABLET BY MOUTH EVERY DAY AT BEDTIME NEEDED 04/28 completed Not Available Not Available Not Available fluoxetin e 20 mg tablet 04/28 completed Prescrib ed Elsewher e: Yes Loca tion: [facility] odify By: kami orozco DateTime : 11/10/19 13 08:15:00 AM Not Available Not Available Not Available levothyro xine 125 mcg tablet TAKE 1 TABLET BY MOUTH EVERY DAY active Not Available Not Available No t Available gabapenti n 300 mg capsule TAKE 2-3 CAPSULES BY MOUTH EVERY DAY AT BEDTIME active Not Available Not Available No t Available diclofena c sodium 75 mg tablet,de layed release TAKE 1 TABLET (75 MG) BY MOUTH TWICE A DAY 04/28 completed Not Available Not Available Not Available pravastat in 20 mg tablet TAKE 1 TABLET BY MOUTH EVERY DAY active Not Available Not Available No t Available methylpre dnisolone 4 mg tablets in a dose pack TAKE 6 TABLETS ON DAY 1 DIRECTED ON PACKAGE AND DECREASE BY 1 TAB EACH DAY FOR A TOTAL OF 6 DAYS 07/20 completed Not Available Not Available Not Available ondansetr on 4 mg disintegr ating tablet 04/28 completed Not Available Not Available Not Available losartan 100 mg tablet TAKE 1 TABLET BY MOUTH EVERY DAY active Not Available Not Available No t Available metformin ER 500 mg tablet,ex tended release 24 hr TAKE 2 TABLETS BY MOUTH DAILY 01/17 completed Not Available Not Available Not Available levothyro xine 112 mcg tablet TAKE 1 TABLET BY MOUTH DAILY 07/20 completed Not Available Not Available Not Available Vitamins and Minerals tablet 11/20 completed Prescrib ed Elsewher e: Yes Loca tion: [facility] odify By: valery ernst DateTime : 11/05/19 12 01:40:10 PM Not Available Not Available Not Available cyclobenz aprine 5 mg tablet TAKE 1-2 TABLETS AT NIGHT FOR MUSCLE SPASMS active Not Available Not Available No t Available nitrofura ntoin monohydra te/macroc rystals 100 mg capsule TAKE 1 CAPSULE BY MOUTH EVERY 12 HOURS FOR 5 DAYS MUST ADMINIST ER WITH A MEAL/JEANA D 04/28 completed Not Available Not Available Not Available Cymbalta 20 mg capsule,d elayed release take 1 capsule by oral route 2 times every day 11/16 completed Prescrib ed Elsewher e: Yes Loca tion: [facility] odify By: kami orozco DateTime : 11/09/19 12 08:45:00 AM Not Available Not Available Not Available Vitamin D3 10 mcg (400 unit) capsule 11/20 completed Prescrib ed Elsewher e: Yes Loca tion: [facility] odify By: valery ernst DateTime : 11/05/19 12 01:40:10 PM Not Available Not Available Not Available B12 5,000 mcg-100 mcg sublingua l lozenge 11/20 completed Prescrib ed Elsewher e: Yes [facility] By: valery browner DateTime : 11/05/19 12 01:40:10 PM Not Available Not Available Not Available Fish Oil 100 mg-160 mg-1,000 mg capsule 11/20 completed Prescrib ed Elsewher e: Yes [facility] By: valery garciasunter DateTime : 11/05/19 12 01:40:10 PM Not Available Not Available Not Available OneTouch Verio test strips TEST FASTING EVERY MORNING active Not Available Not Available No t Available OneTouch Verio Flex Meter USE DIRECTED 01/17 completed Not Available Not Available Not Available Actemra ACTPen 162 mg/0.9 mL subcutane ous pen injector active Not Available Not Available Not Available OneTouch Delica Plus Lancet 30 gauge TEST EVERY MORNING active Not Available Not Available No t Available Vitals Date Recorded Body height Body mass index (BMI) Body weight Provider Name and Address Organization Details Last Updated DateTime 01/09/2021 152.4 cm 37.5 kg/m2 48392.74 g Tatyana Mccormick [facility] 01/09/2021 14:06:55 Date Recorded Systolic blood pressure Diastolic blood pressure Provider Name and Address Organization Details Last Updated DateTime 01/09/2021 122 mm[Hg] 80 mm[Hg] Swetha Benson [facility] [address], [place], [address], [facility] 01/09/2021 14:16:37 Date Recorded Body height Body mass index (BMI) Body weight Provider Name and Address Organization Details Last Updated DateTime 07/20/2022 152.4 cm 35.5 kg/m2 90188.81 g Parisa Montenegro [facility] 07/20/2022 09:35:41 Date Recorded Systolic blood pressure Diastolic blood pressure Provider Name and Address Organization Details Last Updated DateTime 07/20/2022 122 mm[Hg] 76 mm[Hg] Swetha Benson [facility] [address], [place], [address], [facility] 07/20/2022 09:42:48 Date Recorded Body height Body mass index (BMI) Body weight Systolic blood pressure Diastolic blood pressure Provider Name and Address Organization Details Last Updated DateTime 04/28/2023 152.4 cm 35.5 kg/m2 29478.81 g 133 mm[Hg] 83 mm[Hg] Tatyana Adriana [facility] 09:29:40 Social History Question Answer Notes LastModified by Organizat ion Details LastModified Time Tobacco Smoking Status Never Smoker Parisa frost, [facility] 07/20/2022 09:36:19 Do You Have An Advance Directive? No Information n ot available 01/09/2021 What Is Your Level Of Alcohol Consumption? Occasional Information not available 01/07/2021 Are You Blind Or Do You Have Difficulty Seeing? No Information n ot available 01/07/2021 What Is Your Level Of Caffeine Consumption? Moderate Information not available 01/09/2021 How Much Tobacco Do You Chew? None Information not available 01/09/2021 In The 14 Days Before Symptom Onset, Have You Had Close Contact With A Laboratory-confirm ed COVID-19 While That Case Was Ill? No Information n ot available 07/20/2022 In The 14 Days Before Symptom Onset, Have You Had Close Contact With A Person Who Is Under Investigation For COVID-19 While That Person Was Ill? No Information not available 01/09/2021 Have You Been To An Area Known To Be High Risk For COVID-19? No Information not available 01/09/2021 Are You Deaf Or Do You Have Serious Difficulty Hearing? No Information not available 01/07/2021 What Type Of Diet Are You Following? REGULAR Information n ot available 01/07/2021 What Is The Highest Grade Or Level Of School You Have Completed Or The Highest Degree You Have Received? [id number] Information not available 01/09/2021 What Is Your Occupation? [employer] Information not available 01/09/2021 Are There Any Guns Present In Your Home? Yes Information not available 01/09/2021 Do You Use Protection During Sex? No Information not available 01/09/2021 Do You Use Your Seat Belt Or Car Seat Routinely? Yes Information not available 01/07/2021 Do You Have Smoke And Carbon Monoxide Detectors In Your Home? Yes Information not available 01/07/2021 How Much Tobacco Do You Smoke? No Information not available 01/09/2021 Do You Feel Stressed (tense, Restless, Nervous, Or Anxious, Or Unable To Sleep At Night)? [id number] Information not available 01/07/2021 Do You Use Any Illicit Or Recreational Drugs? No Information not available 01/07/2021 Do You Use Sunscreen Routinely? Yes Information not available 01/07/2021 Have You Used IV Drugs? No Information not available 01/09/2021 Sex: Unknown Functional Status Question Answer Note LastModified by Organizat ion Details LastModified Time Do you have difficulty walking or climbing stairs? No Information not available 04/28/2023 Are you able to walk? YESWOREST Information not available 01/07/2021 Are you able to care for yourself? Yes Information not available 04/28/2023 Do you have difficulty dressing or bathing? No Information not available 04/28/2023 What is your exercise level? Occasional Information not available 01/07/2021 Mental Status None recorded. Family History Relationship Description Onset Age of this Age Resolved Age Notes LastModified by Organization Details LastModified Time Father Malignant neoplasm of skin Not available 2022 09:36:00 Father Heart disease open heart surger y Not available 07/20/2022 09:36:00 Father Diabetes mellitus 85 Not available 2022 09:36:00 Father Kidney disease 85 Not available 2022 09:36:00 Mother Disorder of lung 78 78 Not available 2022 09:36:00 Mother Malignant tumor of lung Not available 2022 09:36:00 Mother Osteoporosis 77 Not availa ble 07/20/2022 09:36:00 Mother Diabetes mellitus 78 Not available 2022 09:36:00 Daughter High risk Not available 2022 09:36:00 Brother Substance abuse Not available 2022 09:36:00 Brother Diabetes mellitus Not available 2022 09:36:00 Sister High risk Not available 2022 09:36:00 Medical History Condition Response Diabetes Y Autoimmune disease Y Other Y Arthritis Y Acid Reflux (GERD) Y Cancer Y Urinary Tract Infection Y Kidney or Bladder Problems Y Thyroid Problems Y GI Problems Y High Cholesterol Y Hypertension Y Gynecological History Statement/Question Response Abnormal Pap N Date of Last Mammogram 07/13/2021 Date of LMP 02/18/1999 On BCP's at Conception? N N Was last menstrual period normal Y STIs/STDs N HPV Vaccine N Current Control Method Hysterectom y Age at First Child 21 If Post Menopausal, Age at Menopause [age] Date of Last Colonoscopy 03/15/2016 Most Recent Bone Density Sexually Active? Y Menses Monthly N Age of first menstrual cycle 14 Date of Last Pap Smear Sexual Problems? N LMP Unknown 05/04/2016 N Obstetrics History GPAL:G 2 P 0 0 0 1 Type Value Living 1 Total 2 Past Encounters Encounter ID Performer Location Encounter Start Date Encounter Closed Date Diagnosis/Indication Diagnosis SNOMED-CT Code Diagnosis ICD10 Code Diagnosis Note [id number] Swetha Benson , [facility] [address] [address] 01/09/2021 13:29:25 01/09/2021 15:31:50 Gynecologic examination 45570171 Z01.419 Take Calcium with Vitamin D 12-1500mg daily. Do monthly self breast exams. It is advised to get annual flu shot in the fall and she could obtain at [facility] or [facility] take care clinic. If you haven't received the Tdap vaccine in the last 10 years you should obtain one as well. Have mammogram yearly, bone density every 2-3 years and colonoscop y every 5-10 years depending on findings and history. Engage in daily exercise of low impact aerobic exercise 45-60 minutes 4-5 times weekly. Avoid tobacco and illicit drugs as well as using moderation with alcohol intake less than 1-2 8 oz beverages daily. This lifestyle behavior pattern will lead to less health conditions and longer life span. If BMI greater than 25 weight watchers or dietary consult advised. Questions have been answered. Patient appears to understand instructio ns, but if you have any further questions call or respond to this email Fully hysterecto my for non-cancer indication s.Decline STD screenMamm o orderedDex a ordered Postmenopa usal osteopenia 041264522 M85.80 Vulval irritation 860829 003 N90.89 Area of concern found on exam does not appear to be related to infection. Advised assessing if she can locate clothing/u nderwear etc that could be causing this issue.Area will heal but then it will suddenly return.Pay attention to what you are wearing/do ing around the time it returns.Mj loyd. [id number] Swetha Benson , [facility] [address] [address] 07/20/2022 09:27:33 07/20/2022 11:02:09 Gynecologic examination [id number] Z01.419 Take Calcium with Vitamin D 12-1500mg daily. Do monthly self breast exams. It is advised to get annual flu shot in the fall and she could obtain at [facility] or [facility] take care clinic. If you haven't received the Tdap vaccine in the last 10 years you should obtain one as well. Have mammogram yearly, bone density every 2-3 years and colonoscop y every 5-10 years depending on findings and history. Engage in daily exercise of low impact aerobic exercise 45-60 minutes 4-5 times weekly. Avoid tobacco and illicit drugs as well as using moderation with alcohol intake less than 1-2 8 oz beverages daily. This lifestyle behavior pattern will lead to less health conditions and longer life span. If BMI greater than 25 weight watchers or dietary consult advised. Questions have been answered. Patient appears to understand instructio ns, but if you have any further questions call or respond to this email Fully hysterecto my for non-cancer indication s. USPSTF recommends against screening for cervical cancer in women older than 65yo, those who've had a hysterecto my for non-cancer indication s, & who have had adequate prior screening & are not otherwise at high risk for cervical cancer. Decline STD screenMamm o orderedDex a UTD PCPColon UTD PCP Screening mammography 24 [id number] Z12.31 [id number] Swetha Benson , [facility] [address] [address] 04/28/2023 09:22:54 04/28/2023 09:48:02 Gynecologic examination [id number] Z01.419 Take Calcium with Vitamin D 12-1500mg daily. Do monthly self breast exams. It is advised to get annual flu shot in the fall and she could obtain at [facility] or [facility] clinic. If you haven't received the Tdap vaccine in the last 10 years you should obtain one as well. Have mammogram yearly, bone density every 2-3 years and colonoscop y every 5-10 years depending on findings and history. Engage in daily exercise of low impact aerobic exercise 45-60 minutes 4-5 times weekly. Avoid tobacco and illicit drugs as well as using moderation with alcohol intake less than 1-2 8 oz beverages daily. This lifestyle behavior pattern will lead to less health conditions and longer life span. If BMI greater than 25 weight watchers or dietary consult advised. Questions have been answered. Patient appears to understand instructio ns, but if you have any further questions call or respond to this email Fully hysterecto my for non-cancer indication s. USPSTF recommends against screening for cervical cancer in women older than 65yo, those who've had a hysterecto my for non-cancer indication s, & who have had adequate prior screening & are not otherwise at high risk for cervical cancer. Sent STD screen (unfaithfu l partner now broken up)Mammo orderedDex a UTD PCPColon UTD PCP Screening mammography 24 [id number] Z12.31 Health Concerns Section Related Observation LastModified by Organization Detai ls LastModified Time None Recorded Concern Status LastModified by Organization Details LastModified Time None Recorded Advance Directives Directive N: Payers Encounter Date Sequence Insurance Name Policy Number Policy Hill Covered Member ID Hill Member ID Guarantor Name 01/09/2021 1 [facility] [id number] Cleopatra Stover [id number] Cleopatra Stover 07/20/2022 1 [facility] [id number] Cleopatra Stover [id number] Cleopatra Stover 04/28/2023 1 [facility] [id number] Cleopatra Stover [id number] Cleopatra Stover Notes Date Note Type Note Provider Name and Address Organization Details Recorded Time 01/09/2021 text/html Annual Talent Associate Post-MenopausalRe ported bypatient.[place] etelvina Symptoms:no menopausal symptoms; normal vaginal lubrication Vaginal Bleeding:history of menopause having occurred; no history of post menopausal bleeding Urinary Symptoms:no hematuria; no incontinence; no nocturia; no urinary frequency Vulva:no genital lesion; no vulvar atrophy Vagina:normal vaginal discharge; no vaginal atrophy Breast:no breast lump; no nipple discharge; no breast pain Sexual Complaints:no sexual complaints Psychological Symptoms:no depression; no anxiety Preventive Measures:encourag e regular mammograms starting age 40; encourage self breast examination; encourage regular exercise; encourage no tobacco use; needs to schedule mammogram; history of recent colonoscopy; needs to schedule bone density LISETTE Wang [address], [place], [address], [facility] 01/09/2021 14:33:15 07/20/2022 text/html Annual Talent Associate Post-MenopausalRe ported bypatient.Menopau etelvina Symptoms:no menopausal symptoms; normal vaginal lubrication Vaginal Bleeding:history of menopause having occurred; no history of post menopausal bleeding Urinary Symptoms:no hematuria; no incontinence; no nocturia; no urinary frequency Vulva:no genital lesion; no vulvar atrophy Vagina:normal vaginal discharge; no vaginal atrophy Breast:no breast lump; no nipple discharge; no breast pain Sexual Complaints:no sexual complaints Psychological Symptoms:no depression; no anxiety Preventive Measures:encourag e regular mammograms starting age 40; encourage self breast examination; encourage regular exercise; encourage no tobacco use; needs to schedule mammogram; history of recent colonoscopy [address], [place], [address], [facility] 07/20/2022 10:52:50 04/28/2023 text/html Annual Talent Associate Post-MenopausalRe ported bypatient.Menopau etelvina Symptoms:no menopausal symptoms; normal vaginal lubrication Vaginal Bleeding:history of menopause having occurred; no history of post menopausal bleeding Urinary Symptoms:no hematuria; no incontinence; no nocturia; no urinary frequency Vulva:no genital lesion; no vulvar atrophy Vagina:normal vaginal discharge; no vaginal atrophy Breast:no breast lump; no nipple discharge; no breast pain Sexual Complaints:no sexual complaints Psychological Symptoms:no depression; no anxiety Preventive Measures:encourag e regular mammograms starting age 40; encourage self breast examination; encourage regular exercise; encourage no tobacco use; needs to schedule mammogram; history of recent colonoscopy Swetha Benson, JANE- [address], [place], [id number], [facility] 04/28/2023 09:47:05 OBGyn Episode Ob Episode Information Episode Created Date Number of Fetuses Patient Bloodtype Patient rh Status Prepregnancy Weight lbs Domestic Partner Domestic Partner Phone Father Name Manipulative Therapy Specialist Status 01/08/20 21 1 CLOSED Fetus Data First Name Last Name Admitted to NICU Weight (g) Sex Living Outcome Pediatric Complications Fetus ID Race Codes Race Delivery Type F [id number] Primary Adriel Calculation Initial Adriel Date Initial Exam Date Initial Exam Provider Initial Ultrasound Date Last Menstrual Period Date Ultra Sound Weeks Gestation 0 Eighteen To Twenty Week Adriel Update Ultra Sound Date Fundal Height At Umbil Quickening Date Ultra Sound Latest Weeks Gestation Final Adriel Confirmed By Final Adriel Confirmed Date Final Adriel Date Ultra Sound Latest Days Gestation 0 0 Menstrual History Last Menstrual Date Menses Monthly On Bcp Conception Prior Menses Frequency Hcg Plus Date Menarche Onset Age Delivery Information Delivery Date Delivery Type Labor Anesthesia Weeks Gestation Incision Type Labor Labor Length Hrs Delivered By Post Complications Tubal Sterilization Discharge Date Comments 7 toxemia, osteogeni a after Discharge Information Feeding Method Contraceptive Method Maternal HG B and HCT Levels Ob Episode Information Episode Created Date Number of Fetuses Patient Bloodtype Patient rh Status Prepregnancy Weight lbs Domestic Partner Domestic Partner Phone Father Name Manipulative Therapy Specialist Status 01/08/20 21 1 CLOSED Fetus Data First Name Last Name Admitted to NICU Weight (g) Sex Living Outcome Pediatric Complications Fetus ID Race Codes Race Delivery Type F Full Term [id number] Repeat Adriel Calculation Initial Adriel Date Initial Exam Date Initial Exam Provider Initial Ultrasound Date Last Menstrual Period Date Ultra Sound Weeks Gestation 0 Eighteen To Twenty Week Adriel Update Ultra Sound Date Fundal Height At Umbil Quickening Date Ultra Sound Latest Weeks Gestation Final Adriel Confirmed By Final Adriel Confirmed Date Final Adriel Date Ultra Sound Latest Days Gestation 0 0 Menstrual History Last Menstrual Date Menses Monthly On Bcp Conception Prior Menses Frequency Hcg Plus Date Menarche Onset Age Delivery Information Delivery Date Delivery Type Labor Anesthesia Weeks Gestation Incision Type Labor Labor Length Hrs Delivered By Post Complications Tubal Sterilization Discharge Date Comments 199 0 Discharge Information Feeding Method Contraceptive Method Maternal HG B and HCT Levels
--- OUTSIDE RECORDS SUMMARY | 2024-04-06 08:46 | XMS_ITS | Clinical Summary ---
Author Organization [facility] Address [address] [place] [address] Phone Care Team Providers Care Front End Software Developer Name Role Phone Wil Araya MD Primary Care Provider Allergies No known active allergies Medications levothyroxine (SYNTHROID) 100 MCG Tablet Take 100 mcg by mouth daily. Active PRAVASTATIN SODIUM PO Take by mouth. Active LOSARTAN POTASSIUM PO Take by mouth. Active Ibuprofen (ADVIL PO) Take by mouth. Active ondansetron (ZOFRAN) 4 MG Tablet Take 1 Tab by mouth every 8 hours as needed for Nausea. 10 Tab 11/06/2016 Active metroNIDAZOLE (FLAGYL) 500 MG Tablet Take 1 Tab by mouth 3 times daily. 30 Tab 11/06/2016 Active HYDROcodone-acet aminophen (NORCO) 5-325 MG Tablet Take 1 Tab by mouth every 6 hours as needed for Pain. 15 Tab 11/06/2016 Active Social History Tobacco Use Types Packs/Day Years Used Date Smoking Tobacco: Never Alcohol Use Standard Drinks/Week Comments Yes 0 (1 standard drink = 0.6 oz pur e alcohol) rarely Comments No Sex and Gender Information Value Date Recorded Sex Assigned at Not on file Legal Sex Female 7:30 PM CDT Gender Identity Not on file Sexual Orientation Not on file Last Filed Vital Signs Vital Sign Reading Time Taken Comments Blood Pressure 132/77 11/06/2016 4:45 PM CDT Pulse 88 11/06/2016 4:45 PM CDT Temperature 37.1 ??C (98.7 ??F) 11/06/2016 4:45 PM CD T Respiratory Rate 18 11/06/2016 4:45 PM CDT Oxygen Saturation 100% 11/06/2016 4:45 PM CDT Inhaled Oxygen Concentration - - Weight 86.2 kg (190 lb) 11/06/2016 1:48 PM CDT Height 152.4 cm (5') 11/06/2016 1:48 PM CDT Body Mass Index 37.11 11/06/2016 1:48 PM CDT Plan of Treatment Health Maintenance Due Date Last Done Comments Hepatitis C Virus (HCV) Screening 1966 TdaP Immunization 1966 Hepatitis B Immunization (1 of 3 - 19+ 3-dose series) 1985 Colonoscopy 2011 Colorectal Cancer Screening 2011 Cologuard 2016 Immunochemical Fecal Occult Blood 2016 Mammogram 2016 Pneumococcal Immunization (5 0+ years) (1 of 1 - PCV) 2016 Zoster Immunization (1 of 2) 2016 Influenza Immunization (#1) 2023 SARS-COV-2 Immunization (1 - 2023- season) 2023 Respiratory Syncytial Virus (RSV) Immunization (Adult) (1 - 1-dose 75+ series) 2041 Meningococcal Immunization (ACWY) Aged Out No longer eligible based on patient's age to complete this topic Pneumococcal Immunization Combined Aged Out No longer eligible based on patient's age to complete this topic Rotavirus Immunization Aged Out No lo nger eligible based on patient's age to complete this topic Care Teams Front End Software Developer Relationship Specialty Start Date End Date Wil Araya MD [address] [place] [address] PCP - General Family Medicine 07/12/16
== END 2024-04-01 09:39 | disposition home or self-care (01) ==
LOC: ANHLAB 09:40
PROVIDERS: PCP Family Medicine; Visit Provider Physician Assistant
DX: R82.71 Bacteriuria (principal); R31.9 Hematuria, unspecified; R82.81 Pyuria
CPT/HCPCS: 81001; 87086

== ENCOUNTER 2024-05-08 08:38 | Outpatient (CLI) | payer OTHER, SELFPAY ==
--- NOTE | ~2024-05-08 | MMUS_ITS ---
EXAMINATION: MM diagnostic paulette RT w bob, US breast RT limited HISTORY: Right breast lump TECHNIQUE: 3-D tomosynthesis images of the right breast were performed and synthetic 2-D images were generated. CAD analysis was submitted and interpreted. High resolution limited right breast ultrasoun d was performed. COMPARISON: 10/04/2023, 09/29/2022 BREAST PARENCHYMAL COMPOSITION:Not Dense. There are scattered areas of fibroglandular density. FINDINGS: MAMMOGRAPHIC FINDINGS: Stable parenchymal appearance of the right breast. No suspicious mass lesion or distortion. No suspic ious mass or calcification. ULTRASOUND: At the area of palpable concern at the 1:00 position right breast, 18 cm from the nipple, there is a 1.2 x 0.4 x 1.3 cm homogeneous parallel circumscribed oval mass, without posterior shadowing. IMPRESSION: 1.2 x 0.4 x 1.3 cm benign-appearing mass at the area of clinical concern. Given size, six-month foll ow-up ultrasound advised to assure stability. BI-RADS category 3, probably benign findings. Reviewed, dictated and finalized at location M. PATTERNMAKER APPRENTICE IMPRESSION: 1.2 x 0.4 x 1.3 cm benign-appearing mass at the area of clinical concern. Give n size, six-month follow-up ultrasound advised to assure stability. BI-RADS category 3, probably benign findings.
== END 2024-05-08 08:39 | disposition home or self-care (01) ==
LOC: MICIMG 08:39
PROVIDERS: PCP Family Medicine; Visit Provider Student in an Organized Health Care Education/Training Program
DX: N63.12 Unspecified lump in the right breast, upper inner quadrant (principal)
CPT/HCPCS: 76642; 77061; 77065; G0279

== ENCOUNTER 2024-08-23 11:34 | Outpatient (CLI) | payer OTHER, SELFPAY ==
--- NOTE | ~2024-08-23 | XR_ITS ---
XR abdomen obstructive series Ordering provider: Katie Park PA-C History: . R10.9 - Unspecified abdominal pain . Comparison: None. FINDINGS: BOWEL: Fecal material is loaded in the colon. Nonobstructive bowel gas pattern. ORGANOMEGALY: None. SIGNIFICANT PATHOLOGIC CALCIFICATIONS: None. OTHER: No free air is seen under the diaphragm. IMPRESSION: NO ACUTE ABDOMINAL FINDINGS. Constipation. Reviewed, dictated and finalized at location A.
== END 2024-08-23 11:35 | disposition home or self-care (01) ==
PROVIDERS: PCP Family Medicine
DX: R10.9 Unspecified abdominal pain (principal); R11.10 Vomiting, unspecified; K59.00 Constipation, unspecified
CPT/HCPCS: 74019

== ENCOUNTER 2024-10-07 07:45 | Outpatient (CLI) | payer OTHER, SELFPAY ==
--- NOTE | ~2024-10-07 | MM_ITS ---
EXAMINATION: MM screening paulette BI w bob HISTORY: Screening TECHNIQUE: Craniocaudal and mediolateral oblique 3-D tomosynthesis images were obtained and synthetic 2-D images were generated. CAD analysis was submitted and interpreted. COMPARISON: Comparison to multiple prior studies sequentially, with oldest reviewed study dated 05/22. BREAST PARENCHYMAL COMPOSITION: Not dense: There are scattered areas of fibroglandular density. FINDINGS: There is a small mass in the lower inner quadrant of the left breast in the periareolar loc ation. The right breast is stable without evidence for malignancy. IMPRESSION: 1. Left periareolar mass. 2. Additional mammographic views and possible breast ultrasound are recommended. BI-RADS Category 0: Incomplete: Needs additional imaging evaluation. Reviewed, dictated and finalized at location A. IMPRESSION: 1. Left periareolar mass. 2. Additional mammographic views and possible breast ultrasound are recommended . BI-RADS Category 0: Incomplete: Needs additional imaging evaluation.
== END 2024-10-07 07:46 | disposition home or self-care (01) ==
LOC: MICIMG 07:45
PROVIDERS: PCP Obstetrics & Gynecology; Visit Provider Family Medicine
DX: Z12.31 Encounter for screening mammogram for malignant neoplasm of breast (principal); R92.8 Other abnormal and inconclusive findings on diagnostic imaging of breast
CPT/HCPCS: 77063; 77067

== ENCOUNTER 2024-11-07 08:02 | Outpatient (CLI) | payer OTHER, SELFPAY ==
--- NOTE | ~2024-11-07 | MMUS_ITS ---
EXAMINATION: MM diagnostic paulette LT w bob, US breast BI limited INDICATION: 59-year old female; BI-RADS 0, left breast periareolar mass. In addition, short-term follow-up on ultrasound finding of a probably benign right breast mass at 1:00 location. COMPARISON: 10/07/2024. TECHNIQUE: Digital breast tomosynthesis True lateral and spot compression CC and MLO views of the LEFT breast were obtained with computer-aided detection to assist in interpretation of the study. MAMMOGRAPHY FINDINGS: There are scattered areas of fibroglandular density. The mass of concern in the periareolar left breast persists as a circumscribed mass. Ultrasound was performed for further evaluation. BILATERAL BREAST ULTRASOUND FINDINGS: Targeted evaluation of the area of concern in both breasts was completed. There is a 0.4 x 0.4 x 0.2 cm anechoic cyst at 6:00 at 1 cm from the nipple in the LEFT breast that correlates to the area of Mammographic finding. At 1:00 position, 18 cm from the nipple corresponding to the palpable lump and probably benign finding, and homogeneous probably a circumscribed oval mass measuring 1.4 x 1.4 x 0.4 cm is reidentified and has not significantly changed in the interval. IMPRESSION: Benign LEFT breast cyst correlates to mammographic finding. No further investigation necessary. Probably benign right breast mass that correlates to a palpable lump. RECOMMENDATION: Annual bilateral mammography in 6 months Right breast ultrasound in 6 months. BI-RADS 3, PROBABLY BENIGN Reviewed, dictated and finalized at location B. IMPRESSION: Benign LEFT breast cyst correlates to mammographic finding. No further investig ation necessary. Probably benign right breast mass that correlates to a palpable lump. RECOMMENDATION: Annual bilateral mammography in 6 months Right breast ultrasound in 6 months. BI-RADS 3, PROBABLY BENIGN
== END 2024-11-07 08:03 | disposition home or self-care (01) ==
PROVIDERS: PCP Family Medicine; Visit Provider Obstetrics & Gynecology
DX: N60.02 Solitary cyst of left breast (principal); N63.24 Unspecified lump in the left breast, lower inner quadrant; R92.2 Inconclusive mammogram
CPT/HCPCS: 76642; 77061; 77065; G0279